=== PATIENT | male | born 1945 | race Caucasian/White ===

== ENCOUNTER → 2017-06-12 | Outpatient (CLI) | payer OTHER, MEDICARE ==
[~2017-06-12] VITALS: Ht 152.4 cm; Wt 91.2 kg
[~2017-06-12] MED LIST: ACETAMINOPHEN-1 EAC1 PO; ADULT LOW DOSE81 MG PO; ALEVE220 MG PO; AUGMENTIN 875-1 EACH PO; BACTRIM 400-801 EACH; CRESTOR10 MG PO; CRESTOR5 MG PO; FISH OIL 1,0001 EAC8 PO; FISHOIL; GLUCOSAMINE S1000 M2 PO; IRON325 PO; LISINOPRIL10 MG; MOBIC15 MG; MOBIC15 MG PO; MULTIVITAMINS PO; OMEPRAZOLE 20 M20 M1 PO; RELAFEN500 MG PO; TIROSINT75 MCG PO; TRAMADOL 50 MG50 MG PO; TYLENOL325 MG PO
[2017-06-12 08:46] VITALS: BP 152/75
== END | disposition home or self-care (01) ==
LOC: PAIN 07:22
DX: M47.896 Other spondylosis, lumbar region (principal); M48.06 Spinal stenosis, lumbar region; K21.9 Gastro-esophageal reflux disease without esophagitis; Z98.890 Other specified postprocedural states; Z79.82 Long term (current) use of aspirin

== ENCOUNTER → 2017-08-21 | Outpatient (CLI) | payer OTHER, MEDICARE | LOC: MRI 07:04 | DX: M75.122 Complete rotator cuff tear or rupture of left shoulder, not specified as traumatic (principal); M19.012 Primary osteoarthritis, left shoulder ==

== ENCOUNTER → 2017-12-18 | Outpatient (CLI) | payer OTHER, MEDICARE ==
[~2017-12-18] VITALS: Ht 177.8 cm; Wt 94.5 kg
[~2017-12-18] MED LIST changes: +DICLOFENAC SODI25 MG PO; +FISH OIL PO; +TYLENOL325 M1 PO; +ZANTAC 150MG T150 MG PO; +ZANTAC 7575 MG PO; +ZOCOR20 MG PO
--- NOTE | ~2017-12-18 | HPC ---
[facility] [place] [address] PAIN MANAGEMENT CONSULTATION Name: TONNY BOLIVAR Room #: REG [facility] Marquez#: [id number] Admission: 12/18/17 Attend Phys: Bal Majano DO Discharge: Date of : 45 Report #: [id number] THIS REPORT FOR: //name// CC: Kasi Majano The patient is a very pleasant 72-year-old gentleman long treated for symptomatic lumbar radiculopathy secondary to spinal stenosis, axial back pain, history of left knee DJD, but does require total knee arthroplasty at some point. He requires a right ankle surgery at some point and will likely require a decompression of the lumbar spine at some point. He did have a left total shoulder arthroplasty on 10/01/2017 and did very well with this. I reviewed his MRI from 09/2016, which notes marked spinal stenosis at L4-L5 down to 5 mm with moderate bilateral neural foraminal narrowing in fact bilateral L4 nerve root. There is grade 1 spondylolisthesis at L5-S1. He returns to the pain clinic today knowing that the bilateral transforaminal epidural injections back in May afforded 68% relief for a number of months, 3-4, with gradual return of symptoms without antecedent trauma or overuse. Notes the pain is more an issue of "heaviness." Describes classic neurogenic claudication with activity. We had a long discussion today about therapeutic options. Ultimately, I think he will require surgical decompression. I talked about trying to time his total knee arthroplasty and his back. Pointed out, he will need to do significant rehab following the knee arthroscopy and we will not do any injections 6 weeks prior to a total knee arthroplasty or 6 weeks afterwards. He still is desirous of getting the knee replaced first and back surgery later. I told him we would support whatever decisions he makes. Today physical exam is compatible with lumbar radiculopathy secondary to spinal stenosis with classic neurogenic claudication. Otherwise, physical exam is relatively unchanged, 72-year-old gentleman, BMI is 29.9 kilograms per meter squared. Subjective pain score is 3 on a VAS. Multiple issues of osteoarthritis affecting shoulder, knees and ankles. VITAL SIGNS: Blood pressure is modestly elevated at 151/91, pulse 60 and respirations 20. Pain intensity 3 on a VAS at present. He has fallen once in the last 3 months, he fell while he was hiking. Notes he was simply not paying attention, his legs did not give out. He did not fall "secondary to pain." He is not hypertensive. He does not take opiates on a regular basis. ASSESSMENT: Symptomatic lumbar radiculopathy secondary to spinal stenosis. [address] [address] PAIN MANAGEMENT CONSULTATION Name: TONNY BOLIVAR Room #: REG [facility] Marquez#: [id number] Admission: 12/18/17 Attend Phys: Bal Majano DO Discharge: Date of : 45 Report #: [id number] RECOMMENDATIONS: Bilateral transforaminal epidural injection under fluoroscopy at L4-L5. PROCEDURE #1: Right L4-L5 transforaminal epidural injection under fluoroscopy. PROCEDURE NOTE: After both written and informed consent to include risk of spinal cord damage, increased pain, weakness and dural puncture, the patient was taken to the fluoroscopy suite, placed in the prone position. After sterile prep and drape, a skin wheal with lidocaine was raised. A 22-gauge epidural Tuohy needle was inserted in the midline at L4-L5 on the right with good loss to resistance. Negative aspiration for cerebrospinal fluid or blood was noted. Then 1 mL of Omnipaque under biplanar fluoroscopy showed good spread within the epidural space. This was followed with 40 mg of triamcinolone plus 1 mL of 1.5% preservative-free Xylocaine, 0.5 mL Xylocaine was then injected to flush the needle; it was removed. The patient was monitored for an appropriate period of time and discharged in good and stable condition. PROCEDURE #2: Left L4-L5 transforaminal epidural injection under fluoroscopy. PROCEDURE NOTE: After both written and informed consent to include risk of spinal cord damage, increased pain, weakness and dural puncture, the patient was taken to the fluoroscopy suite, placed in the prone position. After sterile prep and drape, a skin wheal with lidocaine was raised. A 22-gauge epidural Tuohy needle was inserted in the midline at L4-L5 on the left with good loss to resistance. Negative aspiration for cerebrospinal fluid or blood was noted. Then 1 mL of Omnipaque under biplanar fluoroscopy showed good spread within the epidural space. This was followed with 40 mg of triamcinolone plus 1 mL of 1.5% preservative-free Xylocaine, 0.5 mL Xylocaine was then injected to flush the needle; it was removed. The patient was monitored for an appropriate period of time and discharged in good and stable condition. The patient discharged in good and stable condition. <ELECTRONICALLY SIGNED> By: Bal Majano DO 12/19/17 0725 1628 49 Bal Majano DO /nt
[2017-12-18 14:29] VITALS: BP 151/91
== END | disposition home or self-care (01) ==
LOC: PAIN 07:00
DX: M54.16 Radiculopathy, lumbar region (principal); M48.061 Spinal stenosis, lumbar region without neurogenic claudication; Z98.890 Other specified postprocedural states; M43.16 Spondylolisthesis, lumbar region; M17.0 Bilateral primary osteoarthritis of knee; M19.019 Primary osteoarthritis, unspecified shoulder

== ENCOUNTER → 2018-04-24 | Outpatient (CLI) | payer OTHER, MEDICARE ==
[~2018-04-24] VITALS: Ht 177.8 cm; Wt 91.2 kg
[~2018-04-24] MED LIST changes: -TYLENOL325 M1 PO
--- NOTE | ~2018-04-24 | HPC ---
[facility] [address] [place] [address] PAIN MANAGEMENT CONSULTATION Name: BOLIVARTONNY Room #: REG [facility] Ramone.#: [id number] Admission: 04/24/18 Attend Phys: Bal Majano DO Discharge: Date of : 45 Report #: [id number] THIS REPORT FOR: //name// CC: RONALD Majano HISTORY OF PRESENT ILLNESS: The patient is a very pleasant 72-year-old gentleman with lumbar radiculopathy secondary to spinal stenosis, axial back pain, has some OA affecting the left knee. He has done well with occasional epidural injections, bilateral transforaminal epidural injection at L4-L5 in November afforded very good relief over time. The patient returns to pain clinic today noting pain has begun to recur. We talked about the fact that he has a fairly significant stenosis down to about 5 mm at L4-L5. He is intolerant of NSAID agents due to component of some chronic kidney disease. He will likely benefit from decompressive laminectomy at some point. He is actually planning on moving forward with Neurosurgery in December or January of next year. 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 This involves a lot of getting up and down, which affects his knee, but the axial back and radicular pain is the biggest issue. He complains of pain in the low back, bilateral buttocks and legs. He has some neurogenic claudication symptoms with heaviness, weakness in his legs with prolonged standing and walking. PHYSICAL EXAMINATION: Shows pleasant 72-year-old gentleman, BMI is 28.8 kilograms per meter squared. Vital signs are stable as noted on the EMR. Rises from chair using armrest, modestly antalgic gait. Lumbar flexion is limited. He has a fused right ankle. Straight leg raise is positive bilaterally and lower extremity strength is generally symmetric. ASSESSMENT: Symptomatic lumbar radiculopathy secondary to spinal stenosis. RECOMMENDATION: Repeat bilateral L4-L5 transforaminal epidural injection today, follow up simply as needed. I did inform the patient that I will be leaving the practice. We will have him follow up with Dr. Cabrera Majano for occasional bilateral transforaminal epidural injection at L4-L5 prior to hopefully definitive decompressive laminectomy early next year. PROCEDURE NOTE: Bilateral transforaminal epidural injection at L4-L5. PROCEDURE: 1. Left L4-L5 transforaminal epidural injection under fluoroscopy. [address] [address] PAIN MANAGEMENT CONSULTATION Name: TONNY BOLIVAR [facility] [id number] Admission: 04/24/18 Attend Phys: Bal Majano DO Discharge: Date of : 45 Report #: [id number] PROCEDURE NOTE: After both written and informed consent was obtained including risk of spinal cord damage, infection, increased pain and paralysis, the patient agreed to proceed. The patient was taken to the fluoroscopy suite, placed in a prone position with appropriate abdominal bolstering. After sterile prep with ChloraPrep and sterile drape, a skin wheal with 1% Xylocaine was raised. A 22 gauge 4-1/2 inch epidural Tuohy needle was inserted. From an oblique approach into the posterior-superior aspect of the left L4-L5 neural foramen with continuous pressure on the glass syringe plunger for loss of resistance. Glass syringe was filled with 2 cc of 0.1 Xylocaine. The glass loss of resistance syringe was removed. A low volume extension tubing was connected, negative aspiration was accomplished for cerebrospinal fluid or blood. 1 mL of Omnipaque was injected which showed spread both within the epidural space and laterally along the nerve root. This was followed with 40 mg of triamcinolone plus 1 mL of 1.5% preservative-free Xylocaine. Needle was partially withdrawn, 0.5 mL of Xylocaine was injected to clear the needle and the needle was removed. The area was cleansed, band-aid was applied. The patient was allowed to ambulate to the recovery room, discharged in good and stable condition. 2. Right L4-L5 transforaminal epidural injection under fluoroscopy. PROCEDURE NOTE: After both written and informed consent was obtained including risk of spinal cord damage, infection, increased pain and paralysis, the patient agreed to proceed. The patient was taken to the fluoroscopy suite, placed in a prone position with appropriate abdominal bolstering. After sterile prep with ChloraPrep and sterile drape, a skin wheal with 1% Xylocaine was raised. A 22 gauge 4-1/2 inch epidural Tuohy needle was inserted. From an oblique approach into the posterior-superior aspect of the right L4-L5 neural foramen with continuous pressure on the glass syringe plunger for loss of resistance. Glass syringe was filled with 2 cc of 0.1 Xylocaine. The glass loss of resistance syringe was removed. A low volume extension tubing was connected, negative aspiration was accomplished for cerebrospinal fluid or blood. 1 mL of Omnipaque was injected which showed spread both within the epidural space and laterally along the nerve root. This was followed with 40 mg of triamcinolone plus 1 mL of 1.5% preservative-free Xylocaine. Needle was partially withdrawn, 0.5 mL of Xylocaine was injected to clear the needle and the needle was removed. The area was cleansed, band-aid was applied. The patient was allowed to ambulate to the recovery room, discharged in good and stable condition. Thank you for allowing me to participate in the patient's care. I will keep you abreast of his progress. <ELECTRONICALLY SIGNED> By: Bal Majano DO 04/27/18708 1211 23 Bal Majano DO /nt
[2018-04-24 09:38] VITALS: BP 143/79
== END | disposition home or self-care (01) ==
LOC: PAIN 07:29
DX: M48.062 Spinal stenosis, lumbar region with neurogenic claudication (principal); M54.16 Radiculopathy, lumbar region; G89.29 Other chronic pain; M17.12 Unilateral primary osteoarthritis, left knee; N18.9 Chronic kidney disease, unspecified; Z98.890 Other specified postprocedural states; Z88.8 Allergy status to other drugs, medicaments and biological substances; Z79.82 Long term (current) use of aspirin; Z79.899 Other long term (current) drug therapy

== ENCOUNTER → 2018-05-13 | Outpatient (CLI) | payer OTHER, MEDICARE ==
[~2018-05-13] VITALS: Ht 177.8 cm; Wt 90.4 kg
--- NOTE | ~2018-05-13 | HPC ---
[facility] [place] [address] PAIN MANAGEMENT CONSULTATION Name: OSMELTONNY Room #: REG [facility].#: [id number] Admission: 05/13/18 Attend Phys: Cabrera Majano DO Discharge: Date of : 45 Report #: [id number] THIS REPORT FOR: //name// CC: Cabrera Peralta MD DATE OF SERVICE: 05/13/2018 REFERRING PHYSICIAN: Kasi Peralta MD CHIEF COMPLAINT: Low back pain, bilateral lower extremity pain and paresthesias. HISTORY OF PRESENT ILLNESS: As you know, the patient is a very pleasant 72-year-old male who follows with my partner, Dr. Bal Majano for lumbar radiculopathy. The patient has successfully completed bilateral L4-L5 transforaminal epidural injections with the 75% improvement in overall pain. His most recent injection was 04/24/2018. He returns today in followup visit per the request of Dr. Bal Majano to establish care with my service here at [facility]. The patient states he does very well with injections. At present, he is placing pain score 3/10. He does not wish to undergo an injection at this time. He states he has been able to return to all activities of daily living without significant pain interference. He returns to discuss future treatment options if his pain does intensify or return. ALLERGIES: FENTANYL. CURRENT MEDICATIONS: Diclofenac, ranitidine, simvastatin, ferrous sulfate, multivitamin, aspirin, and levothyroxine. SOCIAL HISTORY: The patient reports he is a nonsmoker. Denies IV or illicit drug use. Denies any chronic alcohol use. 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 He is working, not receiving workmen's compensation. He is unaccompanied today. IMAGING: No new imaging available. PQRS: The patient has osteoarthritis of the left knee and low back. He has no history of rheumatoid arthritis. He is placing pain score today of 3/10. He is not a fall risk, has not had a fall in the last 3 months. He is not on blood thinners. He is not treated for hypertension. He is not on chronic opioids. He is a low risk for opioid addiction. His functional assessment tool rates pain impact at 19/70, mild and interference. PHYSICAL EXAMINATION: VITAL SIGNS: Blood pressure 150/80, pulse 67, respiratory rate 18 and [facility] [address] [place] [address] PAIN MANAGEMENT CONSULTATION Name: TONNY BOLIVAR [facility] [id number] Admission: 05/13/18 Attend Phys: Cabrera Majano DO Discharge: Date of : 45 Report #: [id number] unlabored, the patient is 97% on room air, height 5 feet 10 inches tall, weight pounds, BMI calculated 28.6. GENERAL: Well-developed, well-nourished, well-hydrated 72-year-old male, appears his stated age, he is in no acute distress, awake, alert and oriented x3, current pain score 3/10. HEENT: Normocephalic, atraumatic. Pupils are equal, round, reactive to light. Speech is fluent. EXTREMITIES: Show no clubbing, no cyanosis, and no edema. MUSCULOSKELETAL: Seated straight leg raising is negative. Supine straight leg raising positive bilaterally. The patient does have a mildly antalgic gait favoring today right lower extremity over left. He indicates pain is elicited with rising from a seated position. ASSESSMENT: 1. Symptomatic lumbar radiculopathy. 2. Spinal stenosis of the lumbar spine. 3. Displacement of lumbar intervertebral disk with radiculopathy. 4. Lumbosacral spondylosis with radiculopathy. 5. Degeneration of lumbar spine. 6. Chronic intractable pain. PLAN: 1. The patient returns today in followup visit having reported good efficacy with previous epidural injection, 75% improvement in overall pain. At present, the patient does not wish to undergo next in the series of epidural injections, he wishes to delay the next in the series until which time his pain intensifies to a level that is intolerable. I agree with the patient that this would be an optimal way to treat his symptoms. He has done very well with previous epidural injections. We will be available to see him back in followup visit on an as needed basis for the next in the series. We did discuss today other treatment options including medication management, spinal cord stimulator therapy and surgical options. He will consider these options, but does not wish to make any changes in treatment until which time the injections tend to wane in their capabilities of providing pain improvement. 2. We will see the patient back in followup visit on an as needed basis. We will be available to see him back to undergo bilateral L4-L5 transforaminal injections if warranted. By: 0914 1224 Cabrera Majano DO /nt
[2018-05-13 08:00] VITALS: BP 150/80
== END ==
LOC: PAIN 06:28
DX: M47.27 Other spondylosis with radiculopathy, lumbosacral region (principal); M51.16 Intervertebral disc disorders with radiculopathy, lumbar region; M48.061 Spinal stenosis, lumbar region without neurogenic claudication; G89.4 Chronic pain syndrome

== ENCOUNTER → 2018-07-07 | Outpatient (CLI) | payer OTHER, MEDICARE ==
[~2018-07-07] VITALS: Ht 177.8 cm; Wt 93.4 kg
--- NOTE | ~2018-07-07 | HPC ---
[facility] [address] [place] [address] PAIN MANAGEMENT CONSULTATION Name: OSMELTONNY José Miguel Room #: REG [facility].#: [id number] Admission: 07/07/18 Attend Phys: Cabrera Majano DO Discharge: Date of : 45 Report #: [id number] THIS REPORT FOR: //name// CC: Cabrera Peralta MD DATE OF SERVICE: 07/07/2018 REFERRING PHYSICIAN: Kasi Peralta MD CHIEF COMPLAINT: Low back pain, bilateral lower extremity pain and paresthesias. HISTORY OF PRESENT ILLNESS: As you know, the patient is a 72-year-old male followed by my partner, Dr. Bal Majano for lumbar radicular symptoms. He has undergone injection therapies with good benefit. He returns today requesting to undergo next in the series of epidural injections to address 3/10 pain. He states his pain is chronic in nature. He describes the pain as aching and heavy along with numbness and tingling. He states his pain is exacerbated with working on elliptical, bending, standing, lifting and work and improves with medications, activities and epidural injections. He has returned requesting next in the series of epidural injections to build on success of previous intervention. He denies new injury, new trauma or any changes in medical history since his last visit. ALLERGIES: FENTANYL. CURRENT MEDICATIONS: Diclofenac, ranitidine, simvastatin, ferrous sulfate, multivitamin, aspirin and levothyroxine. SOCIAL HISTORY: The patient denies current tobacco use. He denies IV or illicit drug use. Denies any chronic alcohol use. 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 IMAGING: No new imaging available. PQRS: The patient has osteoarthritis of the left knee and low back. He has no history of rheumatoid arthritis. He is placing current pain score at 3/10. He is not a fall risk, has not had a fall in the last 3 months. He is not on blood thinners, not treated for hypertension. He is not on any medications in regards to opioids. He is a low risk for opioid addiction. Functional assessment pain impact score 27/70, moderate. PHYSICAL EXAMINATION: VITAL SIGNS: Blood pressure 129/73, pulse 59, respiratory rate 16 and [facility] [address] [place] [address] PAIN MANAGEMENT CONSULTATION Name: TONNY BOLIVAR José Miguel Room #: [facility]#: [id number] Admission: 07/07/18 Attend Phys: Cabrera Majano DO Discharge: Date of : 45 Report #: [id number] unlabored, the patient 99% on room air. Height 5 feet 10 inches tall, weight 206 pounds, BMI calculated 29.6. GENERAL: Well-developed, well-nourished, well-hydrated 72-year-old male, appearing his stated age, placing current pain score 3/10. HEENT: Normocephalic and atraumatic. Pupils are equal, round and reactive to light. Extraocular muscles are intact. Sclerae are nonicteric without injection. NEUROLOGIC: Cranial nerves 2 through 12 grossly intact. Speech is fluent. The patient deemed a good historian. EXTREMITIES: Show no clubbing, no cyanosis and no edema. MUSCULOSKELETAL: Seated straight leg raising negative. Supine straight leg raising positive, right greater than left. Hernandez's test negative. Gait is antalgic favoring right lower extremity over left. Muscle bulk and tone is symmetrical in the lower extremities. ASSESSMENT: 1. Lumbar radiculopathy. 2. Spinal stenosis of the lumbar spine. 3. Displacement of the lumbar intervertebral disk with radiculopathy. 4. Lumbosacral spondylosis with radiculopathy. 5. Lumbar degeneration. 6. Chronic intractable pain. PLAN: 1. The patient returns today in followup visit requesting to undergo epidural injection under fluoroscopic guidance to address 3/10 pain. The patient and I discussed at length the risks and benefits of the procedure. These risks include but are not necessarily limited to bleeding, bruising, infection, worsening pain, no relief of pain, also risk of temporary or permanent muscle weakness, temporary or permanent nerve damage, possible paralysis and . The patient states understood and wished to proceed. 2. No medication changes made at today's visit. The patient to continue current medical therapy as previously prescribed. 3. We will see the patient back in followup visit on an as needed basis for the next in the series of epidural injections. PROCEDURE NOTE DESCRIPTION OF PROCEDURE: L5-S1 interlaminar epidural steroid injection under fluoroscopic guidance. After obtaining written consent, the patient was taken back to fluoroscopy suite, placed in prone position with pillow under abdomen to decrease lumbar lordosis. Skin overlying lumbosacral area then prepped and draped in aseptic fashion. L5-S1 vertebral interspace identified by AP fluoroscopy. Skin and subcutaneous tissue overlying target site of injection was anesthetized with [address] [address] PAIN MANAGEMENT CONSULTATION Name: TONNY BOLIVAR Room #: REG [facility]#: [id number] Admission: 07/07/18 Attend Phys: Cabrera Majano DO Discharge: Date of : 45 Report #: [id number] mL of 1% lidocaine. A 20-gauge 3-1/2 inch Tuohy needle advanced under fluoroscopic guidance towards the epidural space using paramedian approach. Epidural space identified using loss of resistance to air technique. After negative aspiration for heme or cerebrospinal fluid, 0.3 mL of Omnipaque injected. Lumbar epidurogram confirmed using both AP and lateral fluoroscopy. After negative aspiration for heme or cerebrospinal fluid, 4 mL of a solution containing 1 mL, 80 mg/mL 80 mg total Depo-Medrol and 1 mL of triamcinolone 40 mg/mL, 40 mg total triamcinolone along with 2 mL of lidocaine 1% was injected slowly. Needle retracted nursing home, flushed with 1 mL of 1% lidocaine and removed. Sterile bandage placed over injection site. No new motor deficits present in the lower extremity following procedure. The patient tolerated the procedure well, carefully escorted to recovery room in stable condition. No apparent complications. After meeting discharge criteria, the patient discharged home. <ELECTRONICALLY SIGNED> By: Cabrera Majano DO 07/08/18 0838 1249 0057 Cabrera Majano DO /nt
[2018-07-07 09:46] VITALS: BP 129/73
== END | disposition home or self-care (01) ==
LOC: PAIN 07:03
DX: M51.16 Intervertebral disc disorders with radiculopathy, lumbar region (principal); M48.061 Spinal stenosis, lumbar region without neurogenic claudication; M47.27 Other spondylosis with radiculopathy, lumbosacral region; G89.29 Other chronic pain; M19.90 Unspecified osteoarthritis, unspecified site; Z88.8 Allergy status to other drugs, medicaments and biological substances; Z79.82 Long term (current) use of aspirin; Z79.899 Other long term (current) drug therapy

== ENCOUNTER → 2018-08-19 | Outpatient (CLI) | payer OTHER, MEDICARE ==
[~2018-08-19] VITALS: Ht 177.8 cm; Wt 92.3 kg
--- NOTE | ~2018-08-19 | HPC ---
[facility] [address] [place] [address] PAIN MANAGEMENT CONSULTATION Name: BOLIVARTONNY Room #: REG [facility].#: [id number] Admission: 08/19/18 Attend Phys: Cabrera Majano DO Discharge: Date of : 45 Report #: [id number] THIS REPORT FOR: //name// CC: Cabrera Peralta MD DATE OF SERVICE: 08/19/2018 CHIEF COMPLAINT: Low back pain, bilateral lower extremity pain with paresthesias. HISTORY OF PRESENT ILLNESS: As you know, the patient is a 72-year-old male who returns today in followup visit with recurrent lumbar radicular symptoms radiating down the legs. He reports pain level of 4/10. He reports, with the previous epidural injections, initial excellent efficacy of 90%. Unfortunately, his symptoms began to return quite rapidly. He continues to experience numbness, tingling and pain radiating down the legs. He returns today to undergo bilateral L4 transforaminal epidural injections to address ongoing pain. If this is ineffective, then he wants to discuss possible surgical options. He denies new injury or new trauma that may have caused recurrence of pain more rapidly. ALLERGIES: FENTANYL. CURRENT MEDICATIONS: Diclofenac, ranitidine, simvastatin, ferrous sulfate, multivitamin, aspirin, levothyroxine. SOCIAL HISTORY: The patient denies tobacco use. Denies IV or illicit drug use. Denies any chronic alcohol use. 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 IMAGING: No new imaging available. PQRS: The patient has osteoarthritis of the left knee and low back. No rheumatoid arthritis. He is placing pain score today 4/10. He is not a fall risk, has not had a fall in the last 3 months. He is not on blood thinners. He is not treated for hypertension. He is not on opioids. He has a low risk for opioid addiction. Functional assessment pain impact score 20/70 [id number] interference of daily activities secondary to pain. PHYSICAL EXAMINATION: VITAL SIGNS: Blood pressure 147/74, pulse is 73, respiratory rate 18 and unlabored. The patient is 98% on room air. Height 5 feet 10 inches tall, weight 203.4 pounds, BMI calculated 29.2. GENERAL: Well-developed, well-nourished, well-hydrated, 72-year-old male. He [address] [address] PAIN MANAGEMENT CONSULTATION Name: TONNY BOLIVAR José Miguel [facility] [id number] Admission: 08/19/18 Attend Phys: Cabrera Majano DO Discharge: Date of : 45 Report #: [id number] appears his stated age, placing current pain score 4/10. HEENT: Normocephalic, atraumatic. Pupils equal, round, reactive to light. Extraocular muscles are intact. Sclerae nonicteric without injection. NEUROLOGIC: Cranial nerves 2 through 12 grossly intact. Speech is fluent. EXTREMITIES: Show no clubbing, no cyanosis, no edema. MUSCULOSKELETAL: Lower extremity strength appears equal and symmetrical 5/5, muscle bulk and tone equal and symmetrical in lower extremities. Seated straight leg raising negative. Supine straight leg raising is positive, greater on the right than the left, but is present bilaterally. Hernandez's test negative. Gait antalgic favoring right lower extremity over left. Ankle clonus negative. Babinski is negative. ASSESSMENT: 1. Lumbar radiculopathy. 2. Spinal stenosis of lumbar spine. 3. Displacement of lumbar intervertebral disk with radiculopathy. 4. Lumbosacral spondylosis with radiculopathy. 5. Lumbar degeneration. 6. Chronic intractable pain. PLAN: 1. The patient returns today in followup visit having noted excellent benefit with previous epidural injection. Unfortunately, his symptoms have returned. He returns today requesting to undergo bilateral transforaminal epidural injections as provided by Dr. Bal Majano as he felt these were more effective. He has returned to undergo the procedure today. I advised him of the risks and benefits, states he understood and wished to proceed. 2. No medication changes made at today's visit. The patient to continue current medical therapy as previously prescribed. 3. We will see the patient back in followup visit on an as needed basis for possible next in the series of epidural injections. I did advise the patient today if his pain does not improve significantly with this injection and we see prolonged improvement, I would recommend further imaging with MRI lumbar spine without contrast. This would prepare the patient if he wishes to move forward with surgical options to be ready to have that consultation. The patient will contact our clinic if his symptoms do not improve and remain well covered for at least 2 months. <ELECTRONICALLY SIGNED> By: Cabrera Majano DO 08/25/18 1259 [id number] Cabrera Majano DO /nt
--- NOTE | ~2018-08-19 | HPC ---
[address] [address] PAIN MANAGEMENT CONSULTATION Name: TONNY BOLIVAR [id number] Admission: 08/19/18 Attend Phys: Cabrera Majano DO Discharge: Date of : 45 Report #: [id number] THIS REPORT FOR: //name// CC: Cabrera Peralta MD DATE OF SERVICE: 08/19/2018 DESCRIPTION OF PROCEDURE: Bilateral transforaminal epidural injections under fluoroscopic guidance. After obtaining written consent, the patient was taken back to fluoroscopy suite, placed in prone position with pillow under abdomen to decrease lumbar lordosis. Skin overlying the lumbosacral area then prepped and draped in aseptic fashion. The lumbar vertebrae were identified fluoroscopically. The neural foramen at 6 o'clock position of the pedicle was then identified using oblique fluoroscopy. Skin and subcutaneous tissue overlying target site of injection was anesthetized with 3 mL of 1% lidocaine. Using a tunneled view, a 22-gauge 3-1/2-inch Tuohy needle with bent tip was advanced towards the right epidural space under fluoroscopic guidance. Final position of the needle was identified using AP and lateral views. There were no paresthesias during final needle placement on the right. After negative aspiration for heme or cerebrospinal fluid, 0.4 mL of Omnipaque injected. This was done under live fluoroscopy, which demonstrated absence of vascular uptake. AP and lateral imaging demonstrated excellent neurogram and epidurogram. Pain provocation with injected contrast material was negative. After negative aspiration for heme or cerebrospinal fluid, 3 mL of a solution containing 1 mL 40 mg per mL, 40 mg total triamcinolone, 2 mL of lidocaine 1% injected slowly. Needle retracted detention, flushed with 1 mL of 1% lidocaine and removed. Our attention was then directed to the left side. The image intensifier was then placed in position with a tunneled view directly to the target site of the injection. The area was then anesthetized with 3 mL of 1% lidocaine. A 22-gauge 3-1/2-inch Tuohy needle with bent tip was advanced towards the epidural space under fluoroscopic guidance. Final position of the needle was then identified using AP and lateral imaging. There was no pain or paresthesia during needle placement. After negative aspiration for heme or cerebrospinal fluid, a total of 0.4 mL of Omnipaque was injected demonstrating absence of vascular uptake under live fluoroscopy. AP and lateral imaging demonstrated excellent epidurogram on the left. Pain provocation was negative with contrast material injection. After negative aspiration for heme, 3 mL of a solution containing 1 mL 40 mg per mL, 40 mg total triamcinolone, 2 mL lidocaine 1% injected slowly. Needle retracted detention, flushed with 1 mL of 1% lidocaine and removed. Sterile bandage placed over injection site. No new motor deficits present in the lower extremity following procedure. [address] [address] PAIN MANAGEMENT CONSULTATION Name: TONNY BOLIVAR Room #: REG [facility]#: [id number] Admission: 08/19/18 Attend Phys: Cabrera Majano DO Discharge: Date of : 45 Report #: [id number] The patient tolerated procedure well, carefully escorted to the recovery room in stable condition. No apparent complications. After meeting discharge criteria, the patient discharged home. <ELECTRONICALLY SIGNED> By: Cabrera Majano DO 08/25/18 1259 [id number] Cabrera Majano DO /nt
[2018-08-19 08:07] VITALS: BP 147/74
== END | disposition home or self-care (01) ==
LOC: PAIN 06:34
DX: M51.16 Intervertebral disc disorders with radiculopathy, lumbar region (principal); M47.27 Other spondylosis with radiculopathy, lumbosacral region; M46.96 Unspecified inflammatory spondylopathy, lumbar region; M48.061 Spinal stenosis, lumbar region without neurogenic claudication; G89.29 Other chronic pain; M17.12 Unilateral primary osteoarthritis, left knee; Z79.82 Long term (current) use of aspirin; Z88.8 Allergy status to other drugs, medicaments and biological substances; Z79.899 Other long term (current) drug therapy; Z98.890 Other specified postprocedural states

== ENCOUNTER → 2018-09-30 | Outpatient (CLI) | payer OTHER, MEDICARE ==
[~2018-09-30] VITALS: Ht 177.8 cm; Wt 93.6 kg
[~2018-09-30] MED LIST changes: +TYLENOL325 M1 PO
--- NOTE | ~2018-09-30 | HPC ---
[facility] [address] [place] [address] PAIN MANAGEMENT CONSULTATION Name: TONNY BOLIVAR Room #: REG [facility].#: [id number] Admission: 09/30/18 Attend Phys: Cabrera Majano DO Discharge: Date of : 45 Report #: [id number] THIS REPORT FOR: //name// CC: Cabrera Peralta MD DATE OF SERVICE: 09/30/2018 CHIEF COMPLAINT: Low back pain, bilateral lower extremity pain and paresthesias. HISTORY OF PRESENT ILLNESS: As you know, the patient is a 73-year-old male who returns today in followup visit with recurrent low back pain, bilateral lower extremity pain with paresthesias. The patient, as you are aware, suffers from lumbar radiculopathy secondary to progressively worsening spinal stenosis. The patient's spinal stenosis is multifactorial secondary to the displacement of intervertebral disk and facet arthropathy leading to central canal stenosis. He returns today in followup visit indicating the last bilateral transforaminal epidural injections provided gave approximately 50-60% improvement in overall pain. He returns today in followup visit requesting to undergo the next in the series. 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 He returns requesting bilateral transforaminal epidural injections. ALLERGIES: FENTANYL. CURRENT MEDICATIONS: Diclofenac, ranitidine, simvastatin, ferrous sulfate, multivitamins, aspirin, and levothyroxine. SOCIAL HISTORY: The patient continues current tobacco use. He denies IV or illicit drug use. Denies any chronic alcohol use. 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 IMAGING: No new imaging available. PQRS: The patient has osteoarthritis of the low back and left knee. No history of rheumatoid arthritis. He is placing his current pain intensity at 6/10. He is not a fall risk. Has not had a fall in the last 3 months. He is not on blood thinners. He is not treated for hypertension. He is not on any opioids. He has a low risk for opioid addiction. Functional assessment pain impact tool 27/70, mild to moderate interference of daily activities secondary to pain. PHYSICAL EXAMINATION: VITAL SIGNS: Blood pressure 132/74, pulse 62, respiratory rate 16 and unlabored. The patient is 97% on room air. Height 5 feet 10 inches tall, [facility] [address] [place] [address] PAIN MANAGEMENT CONSULTATION Name: OSMELTONNY José Miguel [facility] [id number] Admission: 09/30/18 Attend Phys: Cabrera Majano DO Discharge: Date of : 45 Report #: [id number] weight 206 pounds, BMI calculated 29.6. GENERAL: Well-developed, well-nourished, well-hydrated 73-year-old male appearing stated age, placing current pain score 6/10. HEENT: Normocephalic, atraumatic. Pupils are equal, round, reactive to light. EXTREMITIES: Show no clubbing, no cyanosis, no edema. MUSCULOSKELETAL: The patient has an antalgic gait favoring right lower extremity over left. Muscle bulk and tone appears symmetrical in lower extremities, though there is subjective weakness noted with muscle strength. It does appear to be 5/5. ASSESSMENT: 1. Lumbar radiculopathy. 2. Spinal stenosis of lumbar spine. 3. Displacement of lumbar intervertebral disk with radiculopathy. 4. Lumbosacral spondylosis with radiculopathy. 5. Lumbar degeneration. 6. Chronic intractable pain. PLAN: 1. The patient returns today in followup visit to undergo bilateral transforaminal epidural injections under fluoroscopic guidance. The patient did very well with previous series reporting up to 50-60% improvement in overall pain lasting until just recently where he had an acute exacerbation of symptoms after participating in climbing ladders for a couple of days while painting a home. He returns today requesting to undergo the procedure today. Advised the risks and benefits, states understood and wished to proceed. 2. The patient and I had a very long discussion today about future treatment options if the epidural injections begin to fail. We did discuss the possibility of medication management changes with addition of neuropathic pain medication. We also discussed spinal cord stimulator therapy and surgical options. He will consider these if the epidural injections began to wane in their activities. 3. We did discuss at length today smoking cessation. I did advise the smoking does exacerbate chronic pain issues and he should look to decreasing this activity. He will consider this option. 4. We will see the patient back in followup visit on an as needed basis. PROCEDURE NOTE DESCRIPTION OF PROCEDURE: Bilateral transforaminal epidural injections under fluoroscopic guidance. After obtaining written consent, the patient was taken back to fluoroscopy suite, placed in prone position with pillow under abdomen to decrease lumbar lordosis. Skin overlying lumbosacral area then prepped and draped in aseptic fashion. The lumbar vertebrae were identified fluoroscopically. The [address] [address] PAIN MANAGEMENT CONSULTATION Name: TONNY BOLIVAR Room #: REG [facility]#: [id number] Admission: 09/30/18 Attend Phys: Cabrera Majano DO Discharge: Date of : 45 Report #: [id number] foramen at the 6 o'clock position of the pedicle was then identified using oblique fluoroscopy. Skin and subcutaneous tissue overlying target site of injection was anesthetized with 3 mL of 1% lidocaine. Using a tunneled view, a 22 gauge 3-1/2 inch Tuohy needle with bent tip was advanced towards the right epidural space under fluoroscopic guidance. Final position of the needle was identified using AP and lateral views. There was no pain or paresthesias during needle placement on the right. After negative aspiration for heme or cerebrospinal fluid, 0.3 mL of Omnipaque injected. This was done under live fluoroscopy, which demonstrated absence of vascular uptake. AP and lateral imaging demonstrated excellent neurogram and epidurogram. Pain provocation with injected contrast material was negative. After negative aspiration for heme or cerebrospinal fluid, 3 mL of a solution containing 1 mL 40 mg per mL, 40 mg total triamcinolone, 2 mL of lidocaine 1% injected slowly. Needle retracted half-way, flushed with 1 mL of 1% lidocaine and removed. Our attention was then directed to the left side. Image intensifier was then placed in position over the lumbar region. The lumbar neural foramen was identified at 6 o'clock position of the pedicle on the left side. Skin and subcutaneous tissue overlying target site of injection was anesthetized with 3 mL of 1% lidocaine. Using a tunneled view, a 22 gauge 3-1/2 inch Tuohy needle advanced under fluoroscopic guidance towards the left epidural space under fluoroscopic imaging. Final position of the needle was identified using AP and lateral views. There was no pain or paresthesia during needle placement on the left. After negative aspiration for heme, 0.4 mL of Omnipaque injected. This was done under live fluoroscopy, which demonstrated absence of vascular uptake. AP and lateral imaging demonstrated excellent neurogram and epidurogram. Pain provocation with injected contrast material was negative. After negative aspiration for heme or cerebrospinal fluid, 3 mL of a solution containing 1 mL 40 mg per mL, 40 mg total triamcinolone and 2 mL of lidocaine 1% injected slowly. Needle retracted half-way, flushed with 1 mL of 1% lidocaine and removed. Sterile bandage placed over both injection sites. The patient tolerated procedure well, carefully escorted to the recovery room in stable condition. No apparent complication. After meeting discharge criteria, the patient discharged home. By: [id number] Cabrera Majano DO /balwinder
[2018-09-30 08:26] VITALS: BP 132/74
== END | disposition home or self-care (01) ==
LOC: PAIN 06:57
DX: M51.16 Intervertebral disc disorders with radiculopathy, lumbar region (principal); M48.061 Spinal stenosis, lumbar region without neurogenic claudication; M47.27 Other spondylosis with radiculopathy, lumbosacral region; G89.29 Other chronic pain; M12.88 Other specific arthropathies, not elsewhere classified, other specified site; Z98.890 Other specified postprocedural states; Z88.8 Allergy status to other drugs, medicaments and biological substances; Z79.899 Other long term (current) drug therapy; Z79.82 Long term (current) use of aspirin; I10 Essential (primary) hypertension

== ENCOUNTER → 2018-11-25 | Outpatient (CLI) | payer OTHER, MEDICARE ==
[~2018-11-25] VITALS: Ht 177.8 cm; Wt 92.5 kg
[~2018-11-25] MED LIST changes: +NEURONTIN 300300 M1 PO
--- NOTE | ~2018-11-25 | HPC ---
[address] [address] PAIN MANAGEMENT CONSULTATION Name: BOLIVARTONNY [facility] [id number] Admission: 11/25/18 Attend Phys: Cabrera Majano DO Discharge: Date of : 45 Report #: [id number] THIS REPORT FOR: //name// CC: Cabrera Peralta DATE OF SERVICE: 11/25/2018 CHIEF COMPLAINT: Low back pain, bilateral lower extremity pain and paresthesias. HISTORY OF PRESENT ILLNESS: As you know, the patient is a 73-year-old male who returns today in followup visit with continued low back pain, bilateral lower extremity pain and paresthesias. As you are aware, the patient has been treated for lumbar radiculopathy secondary to progressively worsening spinal stenosis of lumbar spine. His spinal stenosis is multifactorial secondary to displaced lumbar intervertebral disk, facet arthropathy pain, combining to cause spinal stenosis. He has undergone epidural injections with good efficacy, but unfortunately the length of time we are receiving with these injections has begun to reduce from an efficacious standpoint. He returns today in followup visit to discuss other treatment options as he is early to undergo next in the series of epidural injections, which cannot be provided until 01/07/2018 based on his current shot record. He denies injury or trauma or any changes in medical history since our last visit. ALLERGIES: FENTANYL. CURRENT MEDICATIONS: Diclofenac, ranitidine, simvastatin, ferrous sulfate, multivitamin, aspirin, levothyroxine. SOCIAL HISTORY: The patient continues to abuse tobacco. He denies IV or illicit drug use. Denies any chronic alcohol use. 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 IMAGING: No new imaging available. PQRS: The patient has known arthritic changes, low back, left knee. No history of rheumatoid arthritis. Placing pain intensity today, 6/10, not a fall risk, but has had a fall in the last 3 months. This was after tripping. He is not on blood thinners and not treated for hypertension. He is not on chronic opioids. He has a low to moderate risk for opioid addiction. He is placing pain impact score functional assessment at 27/70, moderate interference of daily activities secondary to pain. PHYSICAL EXAMINATION: [facility] [address] [place] [address] PAIN MANAGEMENT CONSULTATION Name: TONNY BOLIVAR José Miguel Room #: [facility]#: [id number] Admission: 11/25/18 Attend Phys: Cabrera Majano DO Discharge: Date of : 45 Report #: [id number] VITAL SIGNS: Blood pressure 136/75, pulse 70, respiratory rate 20 and unlabored. The patient is 100% on room air. Height 5 feet 10 inches tall, weight 204 pounds, BMI calculated 29.3. GENERAL: Well-developed, well-nourished, well-hydrated 73-year-old male, appearing stated age, placing current pain score at 6/10. HEENT: Normocephalic, atraumatic. Pupils equal, round, reactive to light. EXTREMITIES: Show no clubbing, no cyanosis, no edema. MUSCULOSKELETAL: The patient remains with an antalgic gait favoring mainly the right lower extremity over left. Muscle bulk and tone appear symmetrical in lower extremities, though there is noted subjective weakness with hip flexion, knee extension bilaterally. Grading of the musculature is 5/5. He is intact to light touch from L1 through S2 dermatomes. Seated straight leg raising negative. Supine straight leg raising mildly positive on the right. ASSESSMENT: 1. Lumbar radiculopathy. 2. Progressively worsening spinal stenosis of lumbar spine. 3. Displacement of lumbar intervertebral disk with radiculopathy. 4. Lumbosacral spondylosis with radiculopathy. 5. Lumbar degeneration. 6. Chronic intractable pain. PLAN: 1. The patient returns today in followup visit where we have discussed at length the efficacy of epidural injections. He is noticing good benefit, but unfortunately the benefit he was receiving has become lessened. I am concerned he is having progressively worsening symptoms secondary to progressively worsening spinal stenosis. We discussed this at length today. After a very long discussion about our concerns of progressing of his spinal stenosis, we discussed various treatment options that remain available. The following was discussed with the patient today. We discussed physical therapy, stretching exercise, core strengthening, which could improve the patient's overall symptoms. We discussed adjustments in his medication, adding a neuropathic pain medication to address radicular symptoms. We also discussed possibly repeating epidural injections beginning 01/07/2018, the next available injection date. We discussed surgical options. After reviewing risks and benefits of all proposed treatment options, the patient chose at present to make adjustments in medication therapy. 2. The patient will be started on gabapentin 300 mg dose. He will begin 1 tab p.o. bedtime for 3 nights and 2 tabs p.o. at bedtime for 3 nights, then 1 tab in the morning, 2 tabs at night for 3 nights, then 2 tabs in the morning, 2 tabs at night for 3 nights, then 2 tabs in the morning, 1 tab at noon, 2 tabs at night for 3 nights, ultimately reaching 2 tabs 3 times a day. The patient was given a prescription of gabapentin to escalate dosing of medication. He was given [address] [place] [address] PAIN MANAGEMENT CONSULTATION Name: OSMELTONNY Room #: REG [facility].#: [id number] Admission: 11/25/18 Attend Phys: Cabrera Majano DO Discharge: Date of : 45 Report #: [id number] enough to make the 2 tabs 3 times a day, total of 180 tablets. We did provide 2 refills of this medication. He is to watch for any side effects of somnolence, decreased mental acuity, disorientation, confusion. If he notes any side effects, decrease the dose prior and contact our clinic, if no side effects, continue the titration as directed. We will adjust medications based on efficacy. 3. We will see the patient back in followup visit once he has titrated his gabapentin to an efficacious level or if he is having side effects. Otherwise, we will see him back for possible epidural injection on 01/07/2018. By: [id number] Cabrera Majano DO /nt
[2018-11-25 08:34] VITALS: BP 136/75
--- NOTE | 2018-11-25 08:49 | NUR ---
Pain Clinic Assessment: 1. History of Osteoarthritis: Not Applicable History of Rheumatoid Arthritis: Not Applicable 2. Height: 5 ft. 10 in. 177.8 cm. Weight: 204.0 lb. oz. 92.534 kg. Patient's BMI: 29.3 3. Vital Signs: BP: 136/75 Pulse: 70 Resp: 20 Temp: 02 Sat: 100 ECG Mon: 4. Pain Intensity: 6 5. Fall Risk: Dizziness: N Needs help standing or walking: N Fallen in the last 3 months: Y Fall risk comments: 6. Patient on Blood Thinner: None 7. History of Hypertension: N 8. Opioid Therapy greater than 6 weeks: N Opiate Contract Signed: 9. Risk Assessment Tool Provided: LOW RISK 0 10. Functional Assessment Tool: 11. Recreational Drug Use: Never Drug Type: Tobacco Use: Never Smoker Tobacco Type: Amount or Packs/day: How Many Years: Alcohol Use: No Frequency: Quant:
== END ==
LOC: PAIN 08:17
DX: M54.5 Low back pain (principal); M79.604 Pain in right leg; M79.605 Pain in left leg; G89.29 Other chronic pain; R53.1 Weakness; Z79.899 Other long term (current) drug therapy

== ENCOUNTER → 2019-01-19 | Outpatient (CLI) | payer OTHER, MEDICARE ==
[~2019-01-19] VITALS: Ht 177.8 cm; Wt 93.4 kg
[2019-01-19 10:09] VITALS: BP 131/78
--- NOTE | 2019-01-19 10:22 | NUR ---
Pain Clinic Assessment: 1. History of Osteoarthritis: Not Applicable History of Rheumatoid Arthritis: Not Applicable 2. Height: 5 ft. 10 in. 177.8 cm. Weight: 206.0 lb. oz. 93.441 kg. Patient's BMI: 29.6 3. Vital Signs: BP: 131/78 Pulse: 67 Resp: 16 Temp: 02 Sat: 100 ECG Mon: 4. Pain Intensity: 7-8 5. Fall Risk: Dizziness: N Needs help standing or walking: N Fallen in the last 3 months: Y Fall risk comments: 6. Patient on Blood Thinner: None 7. History of Hypertension: N 8. Opioid Therapy greater than 6 weeks: N Opiate Contract Signed: 9. Risk Assessment Tool Provided: LOW RISK 0 10. Functional Assessment Tool: 11. Recreational Drug Use: Never Drug Type: Tobacco Use: Never Smoker Tobacco Type: Amount or Packs/day: How Many Years: Alcohol Use: No Frequency: Quant:
--- NOTE | 2019-01-20 08:10 | HPC ---
[facility] [place] [address] PAIN MANAGEMENT CONSULTATION Name: OSMELTONNY Room #: REG [facility] Ramone.#: [id number] Admission: 01/19/19 ������������������ Attend Phys: Cabrera Majano DO Discharge: ������������������ Date of : 45 Report #: [id number] THIS REPORT FOR: //name// CC: Cabrera Peralta MD DATE OF SERVICE: 01/19/2019 REFERRING PHYSICIAN: Kasi Peralta M.D. CHIEF COMPLAINT: Low back pain, bilateral lower extremity pain and paresthesias. HISTORY OF PRESENT ILLNESS: As you know, the patient is a very pleasant 73-year-old male who returns today in followup visit reporting pain score 7-8/10. He indicates no new injury or trauma that has led to recurrence of his low back pain, bilateral lower extremity pain with paresthesias. At last visit, we trialed the patient on gabapentin starting with 1 tab p.o. at bedtime, escalating over a 15-day period to reach 600 mg 3 times a day. The patient states he began to experience side effects he could not tolerate such as somnolence, decreased mental acuity, disorientation and confusion. He subsequently discontinued the medication and the symptoms faded. Unfortunately, his symptoms returned to a level that he is now seeking possible epidural injection. He has suffered no injury, no trauma or changes in medication therapy except for what has been indicated in the HPI. He returns today in followup visit requesting epidural injection under fluoroscopic guidance to address lumbar radicular symptoms. ALLERGIES: FENTANYL. CURRENT MEDICATIONS: Diclofenac, ranitidine, simvastatin, ferrous sulfate, multivitamin, aspirin, levothyroxine. SOCIAL HISTORY: The patient continues to abuse tobacco. He denies IV or illicit drug use. Denies any chronic alcohol use. 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 IMAGING: No new imaging available. PQRS: The patient has known arthritic changes of the lumbar spine, left knee. No history of rheumatoid arthritis. He is placing pain intensity is 7-8/10. He is not a fall risk, typically, but did have a fall in the last 3 months. He states he tripped over an object. He does not use any type of ambulatory device. He is not on blood thinners. He is not treated for hypertension. He is not on opioids. He has a low risk for opioid addiction. He is placing pain [facility] [address] [place] [address] PAIN MANAGEMENT CONSULTATION Name: TONNY BOLIVAR Room #: REG [facility]#: [id number] Admission: 01/19/19 ������������������ Attend Phys: Cabrera Majano DO Discharge: ������������������ Date of : 45 Report #: [id number] impact score 27/70 indicating moderate interference of daily activities secondary to pain. PHYSICAL EXAMINATION: VITAL SIGNS: Blood pressure 131/78, pulse is 67, respiratory rate 16 and unlabored. The patient is 100% on room air. Height 5 feet 10 inches tall, weight 206 pounds, BMI calculated 29.6. GENERAL: Well-developed, well-nourished, well-hydrated, 73-year-old male, appearing stated age, placing current pain score around 7-8/10. HEENT: Normocephalic, atraumatic. Pupils equal, round, reactive to light. EXTREMITIES: Show no clubbing, no cyanosis, no edema. MUSCULOSKELETAL: Lower extremity strength equal and symmetrical 5/5. He has an antalgic gait favoring right lower extremity over left. Muscle bulk and tone is symmetrical in comparing the lower extremities, creating a muscle strength 5/5. He is intact to light touch from L1 through S2 dermatomes. Seated straight leg raising negative. Supine straight leg raising mildly positive for right. ASSESSMENT: 1. Lumbar radiculopathy. 2. Progressively worsening spinal stenosis of lumbar spine. 3. Displacement of lumbar intervertebral disk with radiculopathy. 4. Lumbosacral spondylosis with radiculopathy. 5. Lumbar degeneration. 6. Chronic intractable pain. PLAN: 1. The patient returns today in followup visit requesting to undergo next in the series of epidural injections under fluoroscopic guidance. He has done well with epidural injections in the past and is hopeful to see similar improvement today. Unfortunately, the patient did have some symptoms with the gabapentin causing somnolence, decrease in mental acuity, disorientation and confusion. He has subsequently discontinued the medication. His symptoms did improve. We recommend he remain off this medication at this time. We will trial epidural injection and determine if his symptoms improve. If he does not see significant improvement with this epidural injection, I would recommend further MRI imaging. His last imaging was 2015. We wish to further evaluate if conservative treatment options are not effective. The patient was amenable with this treatment plan. 2. No medication changes made at today's visit. The patient to continue current medical therapy as previously prescribed. 3. We will see the patient back in followup visit on an as needed basis for the next in the series of epidural injections. PROCEDURE NOTE DESCRIPTION OF PROCEDURE: L4-L5 interlaminar epidural steroid injection under [facility] [address] [place] [address] PAIN MANAGEMENT CONSULTATION Name: TONNY BOLIVAR Room #: REG CLMari Marquez#: [id number] Admission: 01/19/19 ������������������ Attend Phys: Cabrera Majano DO Discharge: ������������������ Date of : 45 Report #: [id number] fluoroscopic guidance. After obtaining written consent, the patient was taken back to fluoroscopy suite, placed in prone position with pillow under abdomen to decrease lumbar lordosis. Skin overlying lumbosacral area then prepped and draped in aseptic fashion. The L4-L5 vertebral interspace identified by AP fluoroscopy. Skin and subcutaneous tissue overlying target site of injection anesthetized with 2 mL of 1% lidocaine. A 20-gauge 3-1/2 inch Tuohy needle advanced under fluoroscopic guidance towards the epidural space using a paramedian approach. Epidural space identified using loss of resistance to air technique. After negative aspiration for heme or cerebrospinal fluid, 1 mL of Omnipaque injected. Lumbar epidurogram confirmed using both AP and lateral fluoroscopy. After negative aspiration for heme or cerebrospinal fluid, 5 mL of a solution containing 1 mL 40 mg per mL, 40 mg total triamcinolone, 1 mL of Depo-Medrol 80 mg per mL and 3 mL lidocaine 1% injected slowly. Needle was retracted approximately half way, flushed with 1 mL of 1% lidocaine and then removed. Sterile bandage placed over injection site. No new motor deficits present in the lower extremities following procedure. The patient tolerated procedure well, carefully escorted to recovery room in stable condition. No apparent complications. After meeting discharge criteria, the patient discharged home. ��������������������������������������������� <ELECTRONICALLY SIGNED> ���������������������������������������� By: Cabrera Majano DO ��������������������������������������������� 01/20/19 0810 1255 0107 Cabrera Majano DO /balwinder
== END | disposition home or self-care (01) ==
LOC: PAIN 06:51
DX: M51.16 Intervertebral disc disorders with radiculopathy, lumbar region (principal); M48.061 Spinal stenosis, lumbar region without neurogenic claudication; M47.27 Other spondylosis with radiculopathy, lumbosacral region; G89.29 Other chronic pain; M19.90 Unspecified osteoarthritis, unspecified site; Z88.8 Allergy status to other drugs, medicaments and biological substances; Z79.899 Other long term (current) drug therapy; Z79.82 Long term (current) use of aspirin; Z98.890 Other specified postprocedural states

== ENCOUNTER → 2019-07-05 | Outpatient (CLI) | payer OTHER, MEDICARE | LOC: MRI 13:37 | DX: S71.012A Laceration without foreign body, left hip, initial encounter (principal); M25.452 Effusion, left hip; M47.816 Spondylosis without myelopathy or radiculopathy, lumbar region; M43.26 Fusion of spine, lumbar region; X58.XXXA Exposure to other specified factors, initial encounter; Y93.9 Activity, unspecified; Y92.89 Other specified places as the place of occurrence of the external cause; Y99.8 Other external cause status ==

== ENCOUNTER 2019-07-19 05:32 | Day surgery (SDC) | payer OTHER, MEDICARE ==
[~2019-07-19] VITALS: Ht 177.8 cm; Wt 88.5 kg
[~2019-07-19 05:32] MED LIST changes: +VITAMIN B-1100 M1 PO
[2019-07-19 06:27] LABS: CALCIUM 8.9 mg/dL (8.5-10.1); CREATININE 1.5 mg/dL (0.7-1.3); POTASSIUM 3.9 mmol/L (3.5-5.1)
[2019-07-19 06:33] LABS: ALBUMIN 3.7 g/dL (3.4-5.0); TOTAL BILIRUBIN 0.5 mg/dL (<0.1-1.0); TOTAL PROTEIN 6.8 g/dL (6.4-8.2)
[2019-07-19 06:43] VITALS: BP 148/63
== END 2019-07-19 09:00 | disposition home or self-care (01) ==
LOC: OR 05:32 → TBA 05:48 → OR 09:00
PROVIDERS: Orthopaedic Surgery Hand Surgery
DX: G56.01 Carpal tunnel syndrome, right upper limb (principal); Z53.8 Procedure and treatment not carried out for other reasons; E78.5 Hyperlipidemia, unspecified; G47.30 Sleep apnea, unspecified; Z85.46 Personal history of malignant neoplasm of prostate; Z85.828 Personal history of other malignant neoplasm of skin; E03.9 Hypothyroidism, unspecified; Z98.890 Other specified postprocedural states; Z98.41 Cataract extraction status, right eye; Z98.42 Cataract extraction status, left eye; Z79.899 Other long term (current) drug therapy
CPT/HCPCS: 50010

== ENCOUNTER 2019-07-21 10:57 | Day surgery (SDC) | payer OTHER, MEDICARE ==
[~2019-07-21] VITALS: Ht 177.8 cm; Wt 88.5 kg
[2019-07-21 11:44] VITALS: BP 115/96
[2019-07-21 16:46] VITALS: BP 115/96
--- NOTE | 2019-08-10 15:27 | O ---
[facility] [place] [address] OPERATIVE REPORT Name: TONNY BOLIVAR Room #: DEP [facility]#: [id number] Admission: 07/21/19 ������������������ Attend Phys: Kamryn Faulkner, Discharge: 07/21/19 ������������������ Date of : 45 Report #: [id number] THIS REPORT FOR: //name// CC: Kasi Faulkner DATE OF SERVICE: 07/21/2019 PREOPERATIVE DIAGNOSES: 1. Right carpal tunnel syndrome. 2. Right thumb carpometacarpal arthritis. 3. Right distal radioulnar joint arthritis. POSTOPERATIVE DIAGNOSES: 1. Right carpal tunnel syndrome. 2. Right thumb carpometacarpal arthritis. 3. Right distal radioulnar joint arthritis. PROCEDURES PERFORMED: 1. Right open carpal tunnels. 2. Right thumb carpometacarpal arthroplasty, ligament reconstruction and tendon interposition procedure. 3. Right distal ulna russel-resection with interposition arthroplasty. SURGEON: Kamryn Faulkner MD ANESTHESIA: General mask anesthesia. ESTIMATED BLOOD LOSS: 10 mL. TOURNIQUET TIME: 118 minutes. COMPLICATIONS: None. CONDITION: Stable. DISPOSITION: Recovery room. IMPLANTS USED: Achilles tendon allograft was used due to the unavailability of a frozen tensor fascia ellie allograft. INDICATIONS: The patient is a 73-year-old male with above-mentioned diagnosis. He elects for operative treatment. We again examined him today. He did not have any significant pain at the radiocarpal joint, had significant pain, tenderness at the DRUJ, thumb CMC joint and symptoms consistent with carpal tunnel syndrome. We discussed the diagnosis as well as treatment options. He [address] [address] OPERATIVE REPORT Name: TONNY BOLIVAR José Miguel Room #: DEP [facility]..#: [id number] Admission: 07/21/19 ������������������ Attend Phys: Kamryn Faulkner, Discharge: 07/21/19 ������������������ Date of : 45 Report #: [id number] elects for the above-mentioned procedures. The correct extremities and surgical sites were identified and labeled by myself after verbal confirmation of the patient as well as visual confirmation and signed informed consent. DESCRIPTION OF PROCEDURE: The patient was brought to the operating room and placed on the operating table in supine position. He received preoperative antibiotics. Tourniquet was placed over padding on the patient's right upper extremity. Right upper extremity was sterilely prepped and draped in the usual fashion. Final timeout was taken to verify correct patient, operative procedure, operative site, all concurred. The arm was elevated, exsanguinated and tourniquet inflated. Next, the carpal tunnel procedure was done with aid of 3.5 loupe magnification. Approximately, a 3 cm incision was made over the carpal tunnel in line with the ring and long finger web space. Dissection was carried down through subcutaneous tissue with tenotomy scissors. In the mid portion of incision, a #15 blade was used to incise the very thick transverse carpal ligament. The very thick transverse carpal ligament was transected proximally from the antebrachial fascia in the palm all the way through the fat in the palm. The incision was ulnar to the course of median nerve to decrease postoperative scarring. The nerve looked to be in good condition. There was some hyperemia at the point of maximal compression. The wound was thoroughly irrigated. Skin was closed with 4-0 nylon suture. Next, a Fermin approach was done of the CMC joint. Dissection was carried down through subcutaneous tissue with tenotomy scissors. There was a sensory nerve that was identified and carefully protected. The thenars were elevated off the capsule. The capsule was incised and the trapezium was excised using a combination of a rongeur and osteotome. The scaphotrapezoid joint was evaluated and looked to be in good condition. Some loose bodies were identified and removed with a curette. Next, in the proximal portion of the Fermin incision, a mosquito hemostat was placed beneath the FCR tendon. Two incisions were made at 5 cm, both proximally, and the FCR tendon was identified and a mosquito hemostat was placed beneath it. Its identity was confirmed based on traction. The FCR was then transected proximally and taken all the way up to the trapezial space and mobilized all the way to its insertion on the index metacarpal. Next, using Hohmann retractor on the ulnar side of the thumb metacarpal, a 2.5 and then 3.5 mm drill bit was used to create a dorsal distal to volar proximal hole. The FCR tendon was split and one-half of the FCR was taken into the metacarpal space. The area was thoroughly irrigated to remove any bone fragments. Fluoroscopy was brought in, which showed absence of significant bone fragments. The one half of the FCR was sutured to the periosteum of the metacarpal with a 4-0 Supramid suture. It was then taken into trapezial space, wound around itself, pulled back out and sutured with 4-0 Supramid suture. Fluoroscopy was brought in, which showed good maintenance of the trapezial space and no impingement of the metacarpal onto the scaphoid with the axial load. AP, lateral and live fluoroscopic views were all taken. Next, the other half of the FCR was sutured in the trapezial space with a 4-0 Vicryl suture. A watertight capsular closure [facility] [address] [place] [address] OPERATIVE REPORT Name: BOLIVARTONNY Room #: DEP [facility].#: [id number] Admission: 07/21/19 ������������������ Attend Phys: Kamryn Faulkner, Discharge: 07/21/19 ������������������ Date of : 45 Report #: [id number] was performed and then the skin was closed with 4-0 nylon suture. Next, attention was placed to the distal ulna. Approximately 5 cm incision was made over the DRUJ. Dissection was carried down through subcutaneous tissue with tenotomy scissors. EDM sheath was incised and the EDM tendon was retracted. The subsheath was incised creating flaps. Next, the joint was then entered, taking care to avoid damage to the TFCC. The TFCC was palpable with a [place] elevator was found to be intact. Next, an osteotome was used to remove the distal and radial side of the ulnar head. This was checked under fluoroscopy in both PA and lateral positions. This was felt to be acceptable. Next, using 3-0 Ethibond suture, the Achilles tendon graft was sutured into the space with 2-4 layers. It was felt to be very stable. The patient had full range of motion. Next, the capsule was closed taking care to avoid over tensioning it and then a 2-0 PDS was used to create stabilization of the EDM subsheath in a ____ type fashion. This was all done with the forearm in full supination. The DRUJ was assessed and was found to be stable and I was actually able to rotate fully without any crepitus. Prior to doing all this, the wound was thoroughly irrigated. The skin was closed with 4-0 nylon suture. Wound was dressed with Adaptic and sterile gauze. He was placed in a sugar-tong thumb spica splint with the forearm in supination. All fingers were pink with brisk capillary refill at the conclusion of case after deflation of tourniquet. All sponge and needle counts were correct. The patient was transferred to postoperative recovery room in stable condition. ��������������������������������������������� <ELECTRONICALLY SIGNED> ���������������������������������������� By: Kamryn Faulkner MD ��������������������������������������������� 08/10/19 1527 1102 1211 Kamryn Faulkner MD /nt
== END 2019-07-21 18:00 | disposition home or self-care (01) ==
LOC: OR 10:57 → TBA 11:01 → OR 11:15
DX: G56.01 Carpal tunnel syndrome, right upper limb (principal); M18.11 Unilateral primary osteoarthritis of first carpometacarpal joint, right hand; M19.031 Primary osteoarthritis, right wrist; E78.5 Hyperlipidemia, unspecified; G47.30 Sleep apnea, unspecified; E03.9 Hypothyroidism, unspecified; N28.9 Disorder of kidney and ureter, unspecified; Z85.46 Personal history of malignant neoplasm of prostate; Z85.828 Personal history of other malignant neoplasm of skin; Z98.890 Other specified postprocedural states; Z98.41 Cataract extraction status, right eye; Z98.42 Cataract extraction status, left eye; Z96.612 Presence of left artificial shoulder joint; Z79.82 Long term (current) use of aspirin; Z79.899 Other long term (current) drug therapy
CPT/HCPCS: 50010; 50101; 50386; 56525; 56526; 56528; 57006; 57091; 57178; 62110; 62900; 70005

== ENCOUNTER 2019-09-29 05:41 | Observation (INO) | payer OTHER, MEDICARE ==
[~2019-09-29] VITALS: Ht 177.8 cm; Wt 87.4 kg
[2019-09-29 07:00] VITALS: BP 134/82
[2019-09-29 10:45] VITALS: BP 160/35
[2019-09-29 11:43] VITALS: BP 140/75
--- NOTE | 2019-09-29 12:24 | NUR ---
PT ARRIVED ON UNIT TO ROOM 435 ALERT XS 4 NO PAIN NO RESP DISTRESS. PT WAS PUT ON 2L NC WITH O2 SAT = 94%. HAS AQUALCELL TO LEFT HIP THAT IS INTACK HAS ICE BAG ALSO ON. PT IS REGULAR DIET. HAS SLLEP APNEA MACHINE. SCDS AND JARRETT HOSE ON. ASSESSMENT COMPLETED. PT HAS DR ADAM PRIMARY DOCTOR THIS NURSE WILL CALL HIS OFFICE TO LET HIM KNOW THAT PT IS HERE. AND DAUGHTER AT BEDSIDE.
--- NOTE | 2019-09-29 12:34 | O ---
[facility] [place] [address] OPERATIVE REPORT Name: TONNY BOLIVAR Room #: 435-P [facility].#: [id number] Admission: 09/29/19 Attend Phys: Dougie Barragan MD Discharge: Date of : 45 Report #: [id number] THIS REPORT FOR: //name// CC: Dougie Villaseñor Peralta DATE OF SERVICE: 09/29/2019 SERVICE: Orthopedics. FACILITY: [facility]. SURGEON: Dougie Barragan MD INVOICE CLERK: Katia Montanez NP. PREOPERATIVE DIAGNOSES: 1. Chronic left hip pain. 2. Left hip abductor tendon tear and trochanteric bursitis. POSTOPERATIVE DIAGNOSES: 1. Chronic left hip pain. 2. Left hip abductor tendon tear and trochanteric bursitis. PROCEDURE: Left hip open abductor tendon repair with trochanteric bursectomy. COMPLICATIONS: None. DRAINS: None. SPECIMENS: None. ANESTHESIA: General. FINDINGS: High-grade tear with exposed trochanter, suture repaired with Grambling suture tape and ReelX anchor x 2. ESTIMATED BLOOD LOSS: 25 mL HISTORY OF PRESENT ILLNESS: The patient is a 74-year-old gentleman with a history of chronic lateral left hip pain and gait disruption. He had imaging consistent with an abductor tendon tear, which is what the physical examination revealed as well. He had failed conservative measures including rest, activity modifications, physical therapy, oral medications, tissue modalities. He ultimately elected to undergo definitive treatment with plans for surgical repair. Risks, benefits, alternatives, and indication of surgery discussed with [facility] [address] [place] [address] OPERATIVE REPORT Name: OSMELTONNY José Miguel Room #: 435-P [facility] M.R.#: [id number] Admission: 09/29/19 Attend Phys: Dougie Barragan MD Discharge: Date of : 45 Report #: [id number] him in detail. Risks include but not limited to pain, bleeding, infection, injury to nerves or blood vessels, persistent pain despite surgical intervention, failure of any repairs, progression of any preexisting degenerative disease as well as complications related to anesthesia such as stroke, heart attack, pulmonary complications, thromboembolic disease and . We did discuss the potential risk of fatty atrophy with the chronicity of the tendon avulsion tear. PROCEDURE IN DETAIL: After left lower extremity was correctly identified in preoperative holding area as the operative extremity, the patient was taken to the operating room where general anesthesia was induced without complication. He was padded, turned into the lateral decubitus position with the left side up the right side down, he was padded appropriately. Prophylactic antibiotics were administered at appropriate time. Left leg was prepped and draped in standard sterile fashion. Time-out procedure was performed. Incision was made over the lateral aspect of the hip. Dissection was taken down to the fascial layer, which was incised and then retracted. A Charnley retractor was then placed in the thickened inflammatory trochanteric bursa was easily visualized. This was resected with the Bovie and a large piece of trochanteric bursitis was excised. The muscle layer was preserved and the muscle appeared to be healthy and intact. The superficial layer of the abductor insertion on the trochanter appeared intact, but there was some chronic tendinopathy appearance with a pale white waxy appearance. This is typical of this particular injury. It was incised in line with the tissue and this exposed the avulsed area with the exposed trochanteric bone and tendinopathy. A rongeur was used to debride the tendinopathic tissue and degenerative tissue as well as the superficial cortical layer of the trochanter. A good decortication was achieved to bleeding bone. A total of 2 [employer] 2 mm suture tapes were used to create a locking suture technique using deep to superficial modified Loretto type suture running distally anterior up proximally and then moving posteriorly and traveling distally again and the second suture was placed more proximal to this with a U-shaped running locking suture configuration as well. The first anchor was then placed proximally in the trochanter driven down to bone and then tensioned this, provided excellent advancement of the muscle to the trochanter and good coverage of the trochanter itself. A second anchor was then placed in a similar fashion and then the sutures from the anchors and the tissue repair were used to oversew the anterior and posterior limbs of the soft tissue envelope over the trochanter in order to reinforce the repair. At this point, the repair was palpated and found to be secure and stable. The wound was copiously irrigated. The fascial layer was closed with 0 Vicryl suture in [id number] fashion. The fat layer was closed with 2-0 Vicryl and then the skin was closed with 2-0 Vicryl followed by running subcuticular 3-0 Monocryl. Dermabond and a waterproof dressing. The patient was awakened from anesthesia and taken to recovery room in stable condition. There were no complications. All counts were correct. [facility] [address] [place] [address] OPERATIVE REPORT Name: TONNY BOLIVAR Room #: 435-P [facility] Emerald Marquez#: [id number] Admission: 09/29/19 Attend Phys: Dougie Barragan MD Discharge: Date of : 45 Report #: [id number] Postoperative protocol will be approximately 30 pounds partial weightbearing to the left lower extremity with a right platform walker and abduction brace until 6 weeks postoperatively. <ELECTRONICALLY SIGNED> By: Dougie Barragan MD 09/29/19 1234 0935 1001 Dougie Barragan MD /nt
--- NOTE | 2019-09-29 15:57 | NUR ---
INITIAL ASSESSMENT: Pt evaluated for d/c planning needs. Reviewed chart and spoke with nurse and pt. Pt is alert and oriented. Pt lives in house with spouse and was independent with ADL's prior to admission to the hospital. Pt uses platform walker and has been going to outpatient OT at [place] for his wrist. Discussed going home with home health. Pt said he had home health in the past and is agreeable. Explained to pt that he cannot have both home health for mobility and outpatient OT for his arm. Pt said he is not interested in having home health then, as he has just started therapy with his wrist and the physician wants him to continue. Will f/u on to see if this is still his plan.
[2019-09-29 17:19] VITALS: BP 141/77
[2019-09-29 19:13] VITALS: BP 132/72
[2019-09-29 20:00] VITALS: BP 132/72
[2019-09-30 00:32] VITALS: BP 124/60
[2019-09-30 03:47] VITALS: BP 116/64
--- NOTE | 2019-09-30 04:43 | NUR ---
Assumed pt care at 1900. Pt is A/OX4,VSS. Denies pain on assessment,brace in place on back/left thigh. Has a edema glove/splint on right hand CMS intact. Pt is up with assist of 1 with a platform walker. Dressing to left hip C/D/I with Aquacel. Resting with no distress CPAP in place,will continue to monitor pt.
[2019-09-30 07:36] VITALS: BP 125/70
--- NOTE | 2019-09-30 11:16 | NUR ---
ASSUMED CARE OF PATIENT AT 0715, PATIENT ALERT AND ORIENTED X 4. PATIENT UP WITH 1 ASSIST TO BATHROOM, WEARS BACE WHEN UP. PATIENT DENIES PAIN THIS AM, REFUSED PAIN MEDS THIS AM PRIOR TO PHYSICAL THERAPY. 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 LEFT FOREARM IV REMOVED THIS AM. PATIENT HAS HIS OWN CPAP MACHINE AND HIS WALKER. AQUACEL DRESSING IN PLACE, C/D/I. THIS RN WILL GO OVER ALL DISCHARGE PAPERWORK, AND ALL PERSONAL BELONGINGS WILL BE SENT WITH THE PATIENT.
[2019-09-30 11:22] VITALS: BP 125/70
== END 2019-09-30 13:26 | disposition home or self-care (01) ==
LOC: OR 05:41 → TBA 05:42 → OR 10:33 → 4S 10:33 → OR 13:17 → ENTRNSPT 09-30 11:56 → EDTRNSPTSTS 09-30 12:02 → 4S 09-30 13:26
PROVIDERS: ADMIT Orthopaedic Surgery Sports Medicine
DX: S76.812A Strain of other specified muscles, fascia and tendons at thigh level, left thigh, initial encounter (principal); M70.62 Trochanteric bursitis, left hip; X58.XXXA Exposure to other specified factors, initial encounter; Y93.89 Activity, other specified; Y92.89 Other specified places as the place of occurrence of the external cause
CPT/HCPCS: 50010; 50101; 50382; 50414; 52256; 53078; 54118; 55430; 56526; 56527; 56528; 57103; 62110; 62900; 70005

== ENCOUNTER → 2019-11-26 | Outpatient (CLI) | payer OTHER, MEDICARE | LOC: MRI 07:17 | DX: R51 Headache (principal); R42 Dizziness and giddiness ==

== ENCOUNTER 2020-04-05 11:34 | Inpatient (IN) | payer OTHER, MEDICARE ==
[2020-03-30 13:14] LABS: URINE BILIRUBIN NEGATIVE (Negative); URINE BLOOD NEGATIVE (Negative); URINE CLARITY CLEAR; URINE COLOR YELLOW; URINE GLUCOSE-RANDOM* NEGATIVE (Negative); URINE KETONES NEGATIVE (Negative); URINE LEUKOCYTES-REFLEX NEGATIVE (Negative); URINE NITRITE-REFLEX NEGATIVE (Negative); URINE PROTEIN (DIPSTICK) NEGATIVE (Negative); URINE SPECIFIC GRAVITY 1.025 (1.005-1.035); URINE UROBILINOGEN 0.2 E.U./dl (0.2-1.0)
[2020-03-30 13:15] LABS: HEMATOCRIT 39.5 % (42.0-52.0); HEMOGLOBIN 12.9 gm/dL (14.0-18.0); MCH 28.6 pg (26.0-34.0); MCHC 32.8 g/dL (28.0-37.0); MCV 87.2 fL (80.0-100.0); RBC 4.53 mil/uL (4.50-6.00); RDW 15.7 % (10.5-14.5); WBC 5.9 thou/uL (4.0-11.0)
[2020-03-30 13:29] LABS: PROTIME 10.2 Seconds (9.3-11.4)
[2020-03-30 13:42] LABS: ALBUMIN 3.9 g/dL (3.4-5.0); CALCIUM 8.7 mg/dL (8.5-10.1); CREATININE 1.7 mg/dL (0.7-1.3); POTASSIUM 4.3 mmol/L (3.5-5.1); TOTAL BILIRUBIN 0.4 mg/dL (<0.1-1.0); TOTAL PROTEIN 6.7 g/dL (6.4-8.2)
--- NOTE | 2020-03-31 07:46 | EKG ---
[facility] [place] [address] ELECTROCARDIOGRAM REPORT Name: OSMELTONNY José Miguel Room #: PRE IN .R.#: [id number] Admission: Attend Phys: Severino Souza MD Discharge: Date of : 45 Report #: [id number] THIS REPORT FOR: cc: Kasi Peralta MD, Neal A. MD Lundgren,Marques Johnson MD [facility] THIS REPORT FOR: //name// [facility] Test Date: 2020-03-30 Test Time: 13:06:55 Pat Name: TONNY BOLIVAR Department: Room: Gender: Tunnel Inspector: [facility] : 1945 Requested By: Severino Souza Order Number: [id number] MD: Marques Bai Measurements Intervals Grahn Rate: 56 P: 44 CA: 148 QRS: 21 QRSD: 93 T: 36 QT: 433 QTc: 418 Interpretive Statements Sinus rhythm Abnormal R-wave progression, early transition Compared to ECG 09/11/2017 09:10:36 No significant change was found Electronically Signed On 03-31-2020 7:44:27 CDT by Marques Bai [email or web address] <ELECTRONICALLY SIGNED> By: Marques Bai MD, FACC 03/31/20 0744 1306 1306 Marques Bai MD, [facility] /EPI
[2020-04-05] VITALS (7 sets, daily range): BP systolic 136–157; BP diastolic 76–82
[~2020-04-05] VITALS: Ht 177.8 cm; Wt 90.7 kg
[2020-04-06 04:22] VITALS: BP 119/62
[2020-04-06 05:37] LABS: HEMATOCRIT 35.6 % (42.0-52.0); HEMOGLOBIN 11.8 gm/dL (14.0-18.0); MCH 28.7 pg (26.0-34.0); MCHC 33.2 g/dL (28.0-37.0); MCV 86.5 fL (80.0-100.0); RBC 4.11 mil/uL (4.50-6.00); RDW 15.3 % (10.5-14.5)
[2020-04-06 08:53] VITALS: BP 110/71
--- NOTE | 2020-04-06 11:07 | O ---
[facility] [place] [address] OPERATIVE REPORT Name: TONNY BOLIVAR Room #: 444-P ADM IN M.R.#: [id number] Admission: 04/05/20 Attend Phys: Severino Souza MD Discharge: Date of : 45 Report #: [id number] THIS REPORT FOR: cc: Kasi Peralta MD, Neal A. MD Abraham,Severino Murray MD ~ CC: Kasi Souza DATE OF SERVICE: 04/05/2020 PREOPERATIVE DIAGNOSIS: Left knee osteoarthritis. POSTOPERATIVE DIAGNOSIS: Left knee osteoarthritis. PROCEDURE: Left total knee arthroplasty using Navio robotic assistance. SURGEON: Severino Souza MD. DUST COLLECTOR TREATER: Luz Marina Patten PA-C. INDICATIONS FOR DUST COLLECTOR TREATER: Throughout the case, extensive retraction and manipulation of the knee was required. This was afforded to me by my medical assistant float. ANESTHESIA: LMA with an adductor canal block. IMPLANTS: Kitchen and Nephew size 7 Journey II BCS, cobalt chrome femur, size 7 tibia, size 10 polyethylene and size 35 patella. TOURNIQUET TIME: 56 minutes. ESTIMATED BLOOD LOSS: 25 mL. COMPLICATIONS: None. SPECIMENS: None. CONDITION UPON LEAVING THE OPERATING ROOM: Stable. INDICATIONS FOR PROCEDURE: The patient is a 74-year-old gentleman with severe left knee osteoarthritis. He had failed conservative measures for this and after discussion with him, he elected for left total knee arthroplasty. DESCRIPTION OF PROCEDURE: Risks, benefits, alternatives, complications were discussed in detail with the patient including but not limited to risk of anesthesia, risk of damage to nerves, arteries, blood vessels, risk for [facility] [address] [place] [address] OPERATIVE REPORT Name: OSMELTONNY Room #: 444-P [facility] IN .R.#: [id number] Admission: 04/05/20 Attend Phys: Severino Souza MD Discharge: Date of : 45 Report #: [id number] infection, bleeding, risk for continued knee pain, need for reoperation. Informed consent was obtained from the patient. Left knee was appropriately marked in the preoperative holding area. IV Ancef was given for preoperative antibiotics. Adductor canal block was placed. Anesthesia was brought to the operating room and placed in supine position on operating room table. LMA anesthesia was induced without complication. Tourniquet was placed on the left thigh. Left lower extremity was prepped and draped in normal sterile fashion. Timeout was performed properly identifying the patient and procedure as well as the instrumentation and implants. All in the operating room were in agreement. Left lower extremity was exsanguinated, tourniquet was inflated. Tourniquet time was 56 minutes. Standard midline approach to the knee was made with 10 blade through the skin. Dissection was taken down sharply to the fascia and deep flaps were developed medially and laterally. Fresh 10 blade was used to make a medial parapatellar arthrotomy and the knee was inspected. There was severe tricompartmental osteoarthritis. ACL and PCL were removed sharply. Reference pins were placed in the femur and the tibia. The knee was then digitally mapped using the [employer] robotic system. Intraoperative plan was made and we sized the size 7 femur and a size 7 tibia with a 10 spacer. After acceptance of the intraoperative plan, the distal femoral cut was made with a Navio bur. The distal femoral cutting block was pinned in place and chamfer cuts were made. Attention was then turned to the tibia. Remainder of the menisci removed with Bovie cautery. Tibial resection was made. After this, flexion and extension gaps were checked and found to have good balance in flexion and extension both medially and laterally. Tibia was sized, found to be a size 7. A size 7 tibial trial was placed, pinned and punched. A size 7 femoral trial was placed and the box cut was made. This was then trialed with a size 10 polyethylene. Knee was taken through range of motion, found to have good balance in flexion and extension both medially and laterally, both digitally as well as manually. After this, 9 mm was resected from the posterior surface of the patella and a size 35 patellar trial button was placed. Knee was taken through range of motion, found to have good patellar tracking. Trial components were removed. Bony ends were thoroughly irrigated with normal saline. A final size 7 tibia, size 7 Journey II BCS cobalt chrome femur and a size 35 patella were cemented in place using standard cementation techniques. While the cement cured, a periarticular ____. Toradol was placed around the knee joint capsule. After the cement cured, the tourniquet was deflated. Hemostasis was obtained with Bovie cautery. A final size 10 polyethylene was placed. A gram of vancomycin was placed deep in the joint. Fascia was closed with 0 Vicryl, skin was closed with 2-0 Vicryl, 3-0 Monocryl. Dermabond and a KEITH dressing was applied. The patient tolerated this procedure well and went to the recovery room under care of anesthesia postoperatively. <ELECTRONICALLY SIGNED> By: Severino Souza MD 04/06/20 [id number] [id number] Severino Souza MD /nt
[2020-04-06] MEDS ORDERED: ASPIR 8181 MG PO (11:24)
[2020-04-06] MEDS ORDERED: HYDROCODON-ACE1 EAC7 PO (11:24)
[2020-04-06] MEDS ORDERED: MS CONTIN15 MG PO (11:25)
[2020-04-06] MEDS ORDERED: NEURONTIN 300M300 M2 PO (11:25)
[2020-04-06 13:41] VITALS: BP 110/71
== END 2020-04-06 15:00 | disposition home or self-care (01) | DRG 470 ==
LOC: PRE 11:34 → TBA 12:57 → 4S 12:57 → PRE 19:23 → 4S 04-06 15:00
PROVIDERS: ADMIT Orthopaedic Surgery
PROC: 0SRD0J9 Replacement of Left Knee Joint with Synthetic Substitute, Cemented, Open Approach (ICD-10-PCS; principal; 2020-04-05)
DX: M17.12 Unilateral primary osteoarthritis, left knee (principal); Z98.49 Cataract extraction status, unspecified eye; Z20.828 Contact with and (suspected) exposure to other viral communicable diseases; Z79.899 Other long term (current) drug therapy
CPT/HCPCS: 10102; 50010; 50101; 50415; 50954; 51130; 51225; 51320; 52001; 52282; 53000; 53078; 53367; 54118; 56527; 56528; 57095; 57103; 57110; 57127; 57180; 62110; 62900; 64039; 70005

== ENCOUNTER → 2020-07-21 | Outpatient (CLI) | payer OTHER, MEDICARE ==
[~2020-07-21] MED LIST changes: +ASA81BEC PO; +ASPIR 8181 MG PO; +HYDROCODON-ACE1 EAC7 PO; +MS CONTIN15 MG PO; +NEURONTIN 300M300 M2 PO; +PENNSAID112 GM TOP
== END ==
LOC: LAB 09:44
PROVIDERS: ATTEND Orthopaedic Surgery
DX: Z01.812 Encounter for preprocedural laboratory examination (principal); Z20.828 Contact with and (suspected) exposure to other viral communicable diseases

== ENCOUNTER 2020-07-26 08:17 | Observation (INO) | payer OTHER, MEDICARE ==
[2020-07-17 09:18] LABS: ALBUMIN 3.8 g/dL (3.4-5.0); CALCIUM 8.7 mg/dL (8.5-10.1); CREATININE 1.6 mg/dL (0.7-1.3)
[2020-07-17 09:19] LABS: PROTIME 10.6 Seconds (9.3-11.4); URINE BILIRUBIN NEGATIVE (Negative); URINE BLOOD NEGATIVE (Negative); URINE CLARITY CLEAR; URINE COLOR YELLOW; URINE GLUCOSE-RANDOM* NEGATIVE (Negative); URINE KETONES NEGATIVE (Negative); URINE LEUKOCYTES-REFLEX NEGATIVE (Negative); URINE NITRITE-REFLEX NEGATIVE (Negative); URINE PROTEIN (DIPSTICK) NEGATIVE (Negative); URINE SPECIFIC GRAVITY 1.025 (1.005-1.035); URINE UROBILINOGEN 0.2 E.U./dl (0.2-1.0)
[2020-07-17 13:52] LABS: HEMOGLOBIN 12.9 gm/dL (14.0-18.0); MCH 27.8 pg (26.0-34.0); MCV 84.3 fL (80.0-100.0); RBC 4.62 mil/uL (4.50-6.00); RDW 17.7 % (10.5-14.5); WBC 4.4 thou/uL (4.0-11.0)
[~2020-07-26] VITALS: Ht 177.8 cm; Wt 93.0 kg
--- NOTE | ~2020-07-26 | O ---
[facility] [place] [address] OPERATIVE REPORT Name: TONNY BOLIVAR Room #: 436-P [facility] IN M.R.#: [id number] Admission: 07/26/20 Attend Phys: Severino Souza MD Discharge: Date of : 45 Report #: [id number] THIS REPORT FOR: cc: Kasi Peralta MD,Kasi Souza,Severino Murray MD ~ CC: Kasi Souza DATE OF SERVICE: 07/26/2020 PREOPERATIVE DIAGNOSIS: Right knee osteoarthritis. POSTOPERATIVE DIAGNOSIS: Right knee osteoarthritis. PROCEDURE: Right total knee arthroplasty using Navio robotic assistance. SURGEON: Severino Souza MD. FITTER TACKER: Luz Marina Patten PA-C. INDICATIONS FOR FITTER TACKER: Throughout the case, extensive retraction and manipulation of the knee was required. This was afforded to me by my promotions assistant sales marketing. ANESTHESIA: LMA with an adductor canal block. IMPLANTS: Kitchen and Nephew size 7 Journey II BCS cobalt chrome femur, size 6 tibia, size 10 polyethylene and size 35 patella. TOURNIQUET TIME: 57 minutes. ESTIMATED BLOOD LOSS: 25 mL. COMPLICATIONS: None. SPECIMENS: None. CONDITION UPON LEAVING THE OPERATING ROOM: Stable. INDICATIONS FOR PROCEDURE: The patient is a 74-year-old gentleman with severe right knee osteoarthritis. He had failed conservative measures for this and after discussion with him, he elected for right total knee arthroplasty. DESCRIPTION OF PROCEDURE: Risks, benefits, alternatives, complications were discussed in detail with the patient including but not limited to risk of anesthesia; risk of damage to nerves, arteries, blood vessels; risk for [facility] [address] [place] [address] OPERATIVE REPORT Name: TONNY BOLIVAR José Miguel Room #: 436-P [facility] IN [facility].#: [id number] Admission: 07/26/20 Attend Phys: Severino Souza MD Discharge: Date of : 45 Report #: [id number] infection, bleeding; risk for continued knee pain, need for reoperation. Informed consent was obtained from the patient. Right knee was appropriately marked in the preoperative holding area. IV Ancef was given for preoperative antibiotics. Adductor canal block was placed by anesthesia. He was brought to the operating room and placed in supine position on operating room table. LMA anesthesia was induced without complication. Tourniquet was placed on the right thigh. Right lower extremity was prepped and draped in normal sterile fashion. Timeout was performed properly identifying the patient and procedure as well as the instrumentation and implants. All in the operating room were in agreement. Right lower extremity was exsanguinated, tourniquet was placed. Tourniquet time was 57 minutes. Standard midline approach to the knee was made with 10 blade through the skin. Dissection was taken down sharply to the fascia and deep flaps were developed medially and laterally. Fresh 10 blade was used to make a medial parapatellar arthrotomy and the knee was inspected. There was severe tricompartment osteoarthritis. ACL and PCL were removed sharply. Reference pins were placed in the femur and the tibia. The knee was then digitally mapped using [employer] robotic system. Intraoperative plan was made and we sized the size 7 femur with a size 6 tibia and a 10 spacer. After acceptance of the intraoperative plan, the distal femoral cut was made with a Navio bur. Distal femoral cutting block was pinned in place and the chamfer cuts were made. Attention was turned to the tibia. Remainder of the menisci removed with Bovie cautery. Tibial resection guide was pinned in place using the Navio for placement and tibial resection was made. After this, flexion and extension gaps were checked and found to have good balance in flexion and extension both medially and laterally. Tibia was sized, found to be a size 6. A size 6 tibial trial was placed, pinned and punched. A size 7 femoral trial was placed and the box cut was made. This was then trialed with a size 10 polyethylene and size 10 polyethylene demonstrated 1 to 1-1/2 millimeter of laxity medially and laterally throughout range of motion of the knee. A 9 mm was resected from the posterior surface of the patella and a size 35 patellar trial button was placed. Knee was taken through range of motion, found to be stable, found to have good patellar tracking. Trial components were removed. Bony ends were thoroughly irrigated with normal saline. Final size 6 tibia, size 7 Journey II BCS cobalt chrome femur and a size 35 patella were cemented in place using standard cementation techniques. While the cement cured, a periarticular injection consisting of morphine, ropivacaine, epinephrine and Toradol was placed around the knee joint capsule. After the cement cured, the tourniquet was deflated. Hemostasis was obtained with Bovie cautery. Final size 10 polyethylene was placed. A gram of vancomycin was placed deep in the joint. Fascia was closed with 0 Vicryl, skin was closed with 2-0 Vicryl, 3-0 Monocryl. Dermabond and a KEITH dressing was applied. The patient tolerated this procedure well and went to recovery room under care of anesthesia postoperatively. By: [id number] Severino Souza MD /nt
[2020-07-26 11:51] VITALS: BP 134/80
--- NOTE | 2020-07-26 17:42 | NUR ---
PATIENT ADMITTED FROM OR WITH RIGHT KNEE REPLACEMENT, KEITH DRESSING IN PLACE, KNEE HIGH JARRETT SRIVASTAVA, SCD'S, POLAR PACK. PATIENT C/O SOME PAIN, 5/10, REFUSED PAIN MEDS AT THIS TIME. REGULAR DIET ORDERED, NO NAUSEA AT THIS TIME. PATIENT HAS LEFT HAND IV IN PLACE. ADMISSION COMPLETED AND RRPORT GIVEN TO ADAM/RN.
[2020-07-26 18:57] VITALS: BP 145/80
--- NOTE | 2020-07-27 03:29 | NUR ---
ASSUMED PT CARE AT 1908. PT IS A&OX4. IV IS IN LEFT HAND, D5 1/2 NS RUNNING 100 MLS/HR. PT TAKES MEDICATION WHOLE. PT IS ON ROOM AIR. PT DENIES PAIN. PT HAS KEITH DRESSING, POLAR PACK, JARRETT HOSE IN PLACE. PT HAS URINAL AT BEDSIDE. PT IS SLEEPING IN HIS ROOM. WILL CONTINUE TO MONITOR.
[2020-07-27 04:02] VITALS: BP 121/67
[2020-07-27 06:11] LABS: HEMATOCRIT 34.1 % (42.0-52.0); HEMOGLOBIN 11.3 gm/dL (14.0-18.0); MCH 28.1 pg (26.0-34.0); MCHC 33.3 g/dL (28.0-37.0); MCV 84.5 fL (80.0-100.0); RBC 4.03 mil/uL (4.50-6.00); WBC 10.1 thou/uL (4.0-11.0)
--- NOTE | 2020-07-27 08:58 | NUR ---
ASSESSMENT: CM REVIEWED CHART AND SPOKE WITH PATIENT. PT IS HERE S/P R TKA. PT REPORTS THAT HE LIVES IN A HOUSE WITH HIS . PT REPORTS THAT HE HAS ABOUT 2 STEPS TO ENTER AND 12 STEPS WITH HANDRAILS TO HIS BEDROOM. PT REPORTS HE HAS A WALKER AT HOME. PT REPORTS HE IS INDEPENDENT WITH ADLS BUT DOES HAVE A GRAB BAR AND SHOWER CHAIR. PT REPORTS THAT HE HAS OUTPATIENT THERAPY ARRANGED AT [facility] FOR THIS FRIDAY. PT IS TO WORK WITH PT/OT. CM WILL CONTINUE TO FOLLOW TO ASSIST NEEDED.
[2020-07-27 11:28] VITALS: BP 121/67
--- NOTE | 2020-07-27 16:40 | NUR ---
DC ORDERS RECIEVED. IV REMOVED FROM L HAND. DC INSTRUCTIONS AND F/U APPOINTMENT REVIEWED WITH PT, ALREADY HAS SCRIPTS FILLED AT HOME. PT ESCORTED TO MAIN ENTRANCE.
== END 2020-07-27 12:34 | disposition home or self-care (01) ==
LOC: PRE 08:17 → 4S 10:27 → TBA 10:27 → 4S 10:27 → PRE 11:08 → 4S 16:41
PROVIDERS: ADMIT Orthopaedic Surgery; ATTEND Orthopaedic Surgery
DX: M17.11 Unilateral primary osteoarthritis, right knee (principal); M17.12 Unilateral primary osteoarthritis, left knee; M18.9 Osteoarthritis of first carpometacarpal joint, unspecified; M76.892 Other specified enthesopathies of left lower limb, excluding foot; Z96.652 Presence of left artificial knee joint
CPT/HCPCS: 27447; S2900; 10102; 50010; 50101; 50415; 50954; 51130; 51225; 51320; 52001; 52282; 53000; 53078; 54118; 56527; 56528; 57095; 57103; 57110; 57127; 57180; 58239; 62110; 62900; 64039; 70005

== ENCOUNTER → 2020-08-29 | Outpatient (CLI) | payer OTHER, MEDICARE ==
[~2020-08-29] VITALS: Ht 177.8 cm; Wt 94.0 kg
[2020-08-29 07:54] VITALS: BP 139/67
--- NOTE | 2020-08-29 07:59 | NUR ---
Pain Clinic Assessment: 1. History of Osteoarthritis: Not Applicable History of Rheumatoid Arthritis: Not Applicable 2. Height: 5 ft. 10 in. 177.8 cm. Weight: 207.2 lb. oz. 93.985 kg. Patient's BMI: 29.7 3. Vital Signs: BP: 139/67 Pulse: 59 Resp: 18 Temp: 02 Sat: 99 ECG Mon: 4. Pain Intensity: 4 5. Fall Risk: Dizziness: N Needs help standing or walking: N Fallen in the last 3 months: N Fall risk comments: 6. Patient on Blood Thinner: None 7. History of Hypertension: N 8. Opioid Therapy greater than 6 weeks: N Opiate Contract Signed: 9. Risk Assessment Tool Provided: LOW RISK 0 10. Functional Assessment Tool: 11. Recreational Drug Use: Never Drug Type: Tobacco Use: Never Smoker Tobacco Type: Amount or Packs/day: How Many Years: Alcohol Use: No Frequency: Quant:
--- NOTE | 2020-08-29 12:49 | HPC ---
[facility] [place] [address] PAIN MANAGEMENT CONSULTATION Name: OSMELTONNY José Miguel Room #: [facility] Jimmy#: [id number] Admission: 08/29/20 Attend Phys: Cabrera Majano DO Discharge: Date of : 45 Report #: [id number] CC: Cabrera Peralta DATE OF SERVICE: 08/29/2020 CHIEF COMPLAINT: Bilateral lower extremity pain with paresthesias. HISTORY OF PRESENT ILLNESS: As you know, the patient is a pleasant 75-year-old male returning in followup visit with recurrence of bilateral lower extremity paresthesias. The patient, as you are aware, has undergone fusion with Dr. Brent Grullon in 03/2019 with resolution of his symptoms from a severe near critical lumbar spinal stenosis. He was left with multiple level spinal stenosis of varying levels, the most significant noted on the MRI at L1-L2 followed by L3-L4. He has also undergone left hip surgery to address muscle avulsion and reattachment. This was done just after his lumbar fusion. He has also had right hand surgery performed in 08/2019 and bilateral total knee arthroplasty with the most recent being done 5 weeks ago. Despite all these interventional treatments, the patient continues to experience bilateral lower extremity pain with paresthesias consistent with central canal lumbar stenosis. The patient has yet to see his primary care physician nor has he returned to see his neurosurgeon in regards to this issue. He returns today to discuss options for treatment. There are no new imaging studies available. Most recent imaging is prior to surgery performed in 2016. He reports today pain level about 4/10. He denies injury or trauma. He is unaware of what level of the fusion was done with Dr. Grullon and I do not have corroborating information to confirm levels of surgery. He returns to discuss options for treatment. ALLERGIES: FENTANYL. CURRENT MEDICATIONS: Levothyroxine 75 mcg daily, simvastatin 20 mg per day, Tylenol Extra Strength p.r.n., gabapentin 300 mg p.o. at bedtime, aspirin 81 mg per day, Pennsaid applied topically twice a day to a local area. SOCIAL HISTORY: The patient reports no IV or illicit drug use. Denies any chronic alcohol use. He is a reformed smoker. 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 He returns today in followup visit unaccompanied. IMAGING: No new imaging available. PQRS: The patient has known arthritic changes of the lumbar spine, bilateral knees, status post total knee arthroplasty. No rheumatoid arthritis. He is placing pain intensity today at 4/10. He is not a fall risk nor has the fall in last 3 months. He is not on blood thinners, nor is he treated for hypertension. He is not on chronic opioids, has a low opioid addiction potential. Pain impact 27/70, [id number] interference of daily activities secondary to pain. PHYSICAL EXAMINATION: VITAL SIGNS: Blood pressure 139/67, pulse 59, respiratory rate 18 and unlabored. The patient is 99% on room air. Height 5 feet 10 inches tall, weight 207.2 pounds, BMI calculated 29.7. GENERAL: Well-developed, well-nourished, well-hydrated 75-year-old male appearing stated age, pain is rated today 4/10. HEENT: Normocephalic, atraumatic. Pupils equal, round and reactive. Speech fluent. EXTREMITIES: Show no clubbing, no cyanosis. No notable edema. Well-healed surgical scars over the bilateral knees noted today. MUSCULOSKELETAL: Lower extremity strength equal and symmetrical 5/5, intact to light touch from L1 through S2 dermatomes. Seated straight leg raising negative. Supine straight leg raising positive. Hernandez's test is negative. Modified Gaenslen's positive for axial low back pain. Ankle clonus negative. Babinski is negative. Muscle bulk and tone appears equal and symmetrical in comparing lower extremities, muscle bulk and tone is equal and symmetrical. ASSESSMENT: 1. Lumbar radiculopathy. 2. Spinal stenosis of lumbar spine. 3. Displacement of lumbar intervertebral disk with radiculopathy. 4. Lumbosacral spondylosis with radiculopathy. 5. Lumbar degeneration. 6. Chronic intractable pain. PLAN: 1. The patient returns today in followup visit with bilateral lower extremity paresthesias consistent with central canal stenosis. The patient underwent a fusion of the lumbar spine with Dr. Randolph Grullon in 03/2019. The patient is unaware the level of the fusion, but given the findings from his imaging study of 2015, it would be assumed that his stenosis at the L4-L5 level would have been the area of most concern as the findings showed a 4-5 mm AP canal at that level, which was the most significant compressive force in the lumbar spine at that time. We have discussed with the patient our concerns about his bilateral lower extremity symptoms as it relates to spinal stenosis at the levels above and below the fusion. I do not have imaging available to advise the patient whether or not options for surgery may be necessary, though we recommend a conservative approach initially. If this is then unsuccessful, move forward with more imaging and possible surgical consultations. The patient is agreeable. We discussed the following treatment options today. We discussed physical therapy, stretching exercises, core strengthening techniques as a treatment course. We discussed medication management, adjusting neuropathic pain medications as he is on an extremely low dose of gabapentin at present. We discussed epidural injections under fluoroscopic guidance as an option for treatment as well as spinal cord stimulator therapy and ultimately surgical decompression. After reviewing the risks and benefits of all proposed treatment options, the patient chose to adjust medications initially. 2. The patient was provided prescription of gabapentin 300 mg dose. He is currently taking 300 mg p.o. at bedtime, we recommend he increase every 3 days, increasing as follows in hopes of gaining analgesic benefit and minimizing potential side effects of sleepiness, disorientation, confusion and mental slowing. The following titration was given to the patient today. The patient will increase from 1 tablet p.o. at bedtime to 2 tabs p.o. at bedtime for the next 3 nights, no improvement in symptoms, no side effects, then increase to 1 tab in the morning, 2 tablets at night, continuing for 3 days. If again no side effects and no improvement in symptoms, continue the titration every 3 days to reach a level of 900 mg t.i.d. The patient was given a titration schedule to follow. Prescriptions for gabapentin were sent to his local pharmacy. He was advised anytime during the titration if he notes improvement in symptoms, he is to stabilize at that dose, no further escalation. If he notes side effects of sleepiness, disorientation, confusion, mental slowing, he is to reduce the dose prior and contact our clinic. 3. We will plan to see the patient back in follow-up visit in approximately one month. This will give the patient a chance to titrate the medication as directed. If he is having any side effects or concerns, he will call our clinic. We may see him back earlier. We will keep you apprised of that appointment. 4. We wish to thank the referring physician for the opportunity to see this patient in consultation. We will keep you apprised of his response to treatment as we address his recurrent central canal stenosis and lumbar radiculopathy. Again, we wish to thank you for the opportunity to see the patient in consultation. <ELECTRONICALLY SIGNED> By: Cabrera Majano DO 08/29/20 1249 [id number] Cabrera Majano DO /nt
== END ==
LOC: PAIN 06:48
PROVIDERS: ATTEND Anesthesiology Pain Medicine
DX: M51.16 Intervertebral disc disorders with radiculopathy, lumbar region (principal); M48.061 Spinal stenosis, lumbar region without neurogenic claudication; M47.27 Other spondylosis with radiculopathy, lumbosacral region; M79.604 Pain in right leg; M79.605 Pain in left leg; R20.2 Paresthesia of skin; M51.36 Other intervertebral disc degeneration, lumbar region; G89.29 Other chronic pain; Z88.8 Allergy status to other drugs, medicaments and biological substances; Z79.899 Other long term (current) drug therapy

== ENCOUNTER → 2020-10-18 | Outpatient (CLI) | payer OTHER, MEDICARE ==
[~2020-10-18] VITALS: Ht 177.8 cm; Wt 96.0 kg
[2020-10-18 13:28] VITALS: BP 125/80
--- NOTE | 2020-10-18 13:48 | NUR ---
Pain Clinic Assessment: 1. History of Osteoarthritis: DENIES History of Rheumatoid Arthritis: DENIES 2. Height: 5 ft. 10 in. 177.8 cm. Weight: 211.6 lb. oz. 95.981 kg. Patient's BMI: 30.4 3. Vital Signs: BP: 125/80 Pulse: 66 Resp: 16 Temp: 02 Sat: 100 ECG Mon: 4. Pain Intensity: 5 5. Fall Risk: Dizziness: N Needs help standing or walking: N Fallen in the last 3 months: N Fall risk comments: 6. Patient on Blood Thinner: None 7. History of Hypertension: N 8. Opioid Therapy greater than 6 weeks: N Opiate Contract Signed: 9. Risk Assessment Tool Provided: LOW RISK 0 10. Functional Assessment Tool: 11. Recreational Drug Use: Never Drug Type: Tobacco Use: Never Smoker Tobacco Type: Amount or Packs/day: How Many Years: Alcohol Use: No Frequency: Quant:
--- NOTE | 2020-10-24 07:58 | HPC ---
[address] [address] PAIN MANAGEMENT CONSULTATION Name: TONNY BOLIVAR José Miguel [facility] #: [id number] Admission: 10/18/20 Attend Phys: Cabrera Majano DO Discharge: Date of : 45 Report #: [id number] THIS REPORT FOR: cc: Kasi Peralta MD, Neal A. MD Johnson, James E. DO ~ DATE OF SERVICE: 10/18/2020 REFERRING PHYSICIAN: Dr. Brent Grullon CHIEF COMPLAINT: Bilateral lower extremity pain. HISTORY OF PRESENT ILLNESS: As you know, the patient is a very pleasant, 75-year-old male who has been referred back to our clinic by his neurosurgeon, Dr. Brent Grullon, for an epidural injection under fluoroscopic guidance. The patient, after surgery, continued to experience bilateral lower extremity pain with paresthesias. He underwent surgery in March of 2019 with resolution of his severe, near critical spinal stenosis but he was left with bilateral lower extremity symptoms, that has slowly progressed. He has returned today in followup visit to undergo the first in a series of lumbar epidural injections requested by his neurosurgeon. He is being evaluated for possible surgical decompression of the level above his recent surgery but they are hopeful to avoid this with epidural injections. The patient denies new injury, trauma or any changes in medical history since our visit of 08/29/2020 where we trialled conservative medication management. Unfortunately, he could not tolerate the gabapentin. Though he was seeing some benefit with it, he said the side effects were too profound and he discontinued the medication due mainly to somnolence. He returns today for epidural injection under fluoroscopic guidance. ALLERGIES: FENTANYL. CURRENT MEDICATIONS: Levothyroxine, simvastatin, Tylenol Extra Strength, gabapentin, aspirin, Pennsaid. SOCIAL HISTORY: The patient reports no tobacco use. He is a former smoker. He denies IV or illicit drug use. Denies any chronic alcohol use. He is unaccompanied today. IMAGING: No new imaging available. PQRS: The patient has known arthritic changes of the lumbar spine, bilateral knees. No rheumatoid arthritis. He is placing pain intensity today at 5/10. He is not a fall risk. Has not had a fall in the last 3 months. He is not on blood thinners nor is he treated for hypertension. He is not on chronic opioids. Has a low opiate addiction potential. Pain impact score is 27/70. [address] [address] PAIN MANAGEMENT CONSULTATION Name: TONNY BOLIVAR José Miguel [facility] [id number] Admission: 10/18/20 Attend Phys: Cabrera Majano DO Discharge: Date of : 45 Report #: [id number] Moderate interference of daily activities secondary to pain. PHYSICAL EXAMINATION: VITAL SIGNS: Blood pressure 125/80, pulse 66, respiratory rate 16 and unlabored. The patient is 100% on room air. Height 5 feet 10 inches tall, weight 211.6 pounds, BMI calculated at 30.4. GENERAL: Well-developed, well-nourished, well-hydrated 75-year-old male, appearing his stated age. Pain is rated around 5/10. HEENT: Normocephalic, atraumatic. EXTREMITIES: Show no clubbing, no cyanosis. No appreciable edema. MUSCULOSKELETAL: Lower extremity strength equal and symmetrical 5/5, intact to light touch from L1 through S2 dermatomes. Seated straight leg raising negative. Supine straight leg raising positive. Hernandez's test is negative. ASSESSMENT: 1. Symptomatic lumbar radiculopathy. 2. Spinal stenosis of lumbar spine. 3. Displacement of lumbar intervertebral disk with radiculopathy. 4. Lumbosacral spondylosis with radiculopathy. 5. Lumbar degeneration. 6. Chronic intractable pain. PLAN: 1. The patient has returned today in followup visit indicating he could not tolerate the escalating doses of gabapentin due to somnolence. He has subsequently decreased the use of the medication and the somnolence symptoms abated. He is stabilized on a dose of gabapentin that is providing minimal benefit but also no side effects. He is going to continue the dose at that level. He returns today to undergo lumbar epidural injection. The patient was advised of the risks and the benefits of a lumbar epidural injection. These risks include, but are not necessarily limited to; bleeding, bruising, infection, worsening of pain, no relief of pain, temporary or permanent muscle weakness, temporary or permanent nerve damage, possible paralysis and . The patient states understood and wished to proceed. 2. No medication changes made at today's visit. The patient will continue current medical therapy as prior prescribed. 3. We will see the patient back in followup visit for the next in the series of lumbar epidural injections in about 30 days. We are hopeful the patient will see good and prolonged benefit with today's procedure and he will be able to delay the next in the series of injections. PROCEDURE NOTE DESCRIPTION OF PROCEDURE: Lumbar epidural steroid injection under fluoroscopic guidance. [address] [address] PAIN MANAGEMENT CONSULTATION Name: TONNY BOLIVAR Room #: REG Mari Marquez#: [id number] Admission: 10/18/20 Attend Phys: Cabrera Majano DO Discharge: Date of : 45 Report #: [id number] After obtaining written consent, the patient was taken back to fluoroscopy suite, placed in prone position with pillow under abdomen to decrease lumbar lordosis. Skin overlying the lumbosacral area then prepped and draped in an aseptic fashion. Lumbar intervertebral spaces were identified and the area just above the fusion was marked with a sterile marker. A 27-gauge, 1-1/4 inch needle was then used to anesthetize skin and subcutaneous tissue with 2 mL of 1% lidocaine. A 20-gauge 3-1/2 inch Tuohy needle advanced under fluoroscopic guidance towards the epidural space using a midline approach. Epidural space identified using loss of resistance to air technique. After negative aspiration for heme or cerebrospinal fluid, 1 mL of Omnipaque injected. Lumbar epidurogram confirmed using both AP and lateral fluoroscopy. After negative aspiration for heme or cerebrospinal fluid, 5 mL of a solution containing 2 mL 40 mg per mL, 80 mg total of triamcinolone along with 3 mL of lidocaine 1% injected slowly. Needle retracted fpc, flushed with 1 mL of 1% lidocaine and then removed. Sterile bandage placed over injection site. No new motor deficits present in the lower extremities following the procedure. The patient tolerated procedure well, carefully escorted to recovery room in a stable condition. No apparent complications. After meeting discharge criteria, the patient discharged home. <ELECTRONICALLY SIGNED> By: Cabrera Majano DO 10/24/20 [id number] Cabrera Majano DO /balwinder
== END | disposition home or self-care (01) ==
LOC: PAIN 06:48
PROVIDERS: ATTEND Anesthesiology Pain Medicine
DX: M51.16 Intervertebral disc disorders with radiculopathy, lumbar region (principal); M47.27 Other spondylosis with radiculopathy, lumbosacral region; M48.061 Spinal stenosis, lumbar region without neurogenic claudication; G89.29 Other chronic pain; Z98.890 Other specified postprocedural states; Z79.899 Other long term (current) drug therapy; Z87.891 Personal history of nicotine dependence; Z88.8 Allergy status to other drugs, medicaments and biological substances

== ENCOUNTER → 2021-03-27 | Outpatient (CLI) | payer OTHER, MEDICARE | LOC: SJCVCIMAG 07:52 | PROVIDERS: ATTEND Internal Medicine Cardiovascular Disease | DX: I07.1 Rheumatic tricuspid insufficiency (principal); I77.89 Other specified disorders of arteries and arterioles; R06.00 Dyspnea, unspecified; R00.1 Bradycardia, unspecified; R07.89 Other chest pain; I25.10 Atherosclerotic heart disease of native coronary artery without angina pectoris; Z79.899 Other long term (current) drug therapy ==

== ENCOUNTER → 2021-05-08 | Outpatient (CLI) | payer OTHER, MEDICARE ==
[~2021-05-08] VITALS: Ht 177.8 cm; Wt 99.8 kg
[~2021-05-08] MED LIST changes: +ALPHA LIPOIC AC50 M1 PO; +BENICAR20 MG PO; +DEEP BLUE RELI TOP; +IRON325 M1 PO; +LEVO-T100 MCG PO; +LYRICA 50 MG50 MG PO; +VOLTAREN ARTHRI20 GM TOP
--- NOTE | ~2021-05-08 | HPC ---
[facility] [place] [address] PAIN MANAGEMENT CONSULTATION Name: TONNY BOLIVAR José Miguel Room #: REG [facility] Ramone.#: [id number] Admission: 05/08/21 Attend Phys: Cabrera Majano DO Discharge: Date of : 45 Report #: [id number] THIS REPORT FOR: cc: Kasi Peralta MD, Neal A. MD Johnson, James E. DO ~ DOC #: [id number] cc: Kasi Peralta MD, MD Cabrera Jackman DO DATE OF SERVICE: 05/08/2021 CHIEF COMPLAINT: Bilateral lower extremity peripheral neuropathy. HISTORY OF PRESENT ILLNESS: As you know, patient is a very pleasant 75-year-old male, referred back to our service with diagnosis of bilateral peripheral neuropathy of the lower extremities. Patient has undergone surgery to address lumbar radiculopathy with improvement in overall pain. Unfortunately, patient continues to experience bilateral lower extremity symptoms for which he describes as numbness, tingling and burning. Apparently, he has undergone EMG of the lower extremities, which shows peripheral neuropathic symptoms, unrelated to the lumbar spine. He was sent to Neurology, who trialed the patient on low-dose Lyrica therapy. He is now taking 50 mg b.i.d. without side effects, but without benefit. He has been referred to our clinic to discuss treatment options for peripheral neuropathy. He has failed gabapentin as it caused somnolence. He is having no side effects to the Lyrica. He reports today pain level of about a 6/10. 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 He describes the pain more as a burning, aching and weakness-like sensation in the lower extremities. He has been referred back to our clinic to discuss treatment options for peripheral neuropathy. ALLERGIES: No known drug allergies. CURRENT MEDICATIONS: Lyrica 50 mg b.i.d., ferrous sulfate 325 mg per day, Voltaren arthritis 20 g topical 4 times a day, alpha-lipoic acid 300 mg b.i.d., simvastatin 20 mg per day, olmesartan 20 mg per day, levothyroxine 100 mcg per day, aspirin 81 mg per day, acetaminophen 325 mg p.r.n. SOCIAL HISTORY: No tobacco use. He is a former smoker. Denies IV or illicit drug use. Denies any chronic alcohol use. He is retired, retiring about a month ago. Unaccompanied today. IMAGING: No new imaging available. PQRS: Patient has known arthritic changes of lumbar spine, bilateral knees. No rheumatoid arthritis. He is not a fall risk, has not had a fall in the last [address] [address] PAIN MANAGEMENT CONSULTATION Name: OSMELTONNY José Miguel Room #: REG [facility] Marquez#: [id number] Admission: 05/08/21 Attend Phys: Cabrera Majano DO Discharge: Date of : 45 Report #: [id number] months. He is not on blood thinners. He is treated for hypertension. He is not on any opioids, has a low opioid addiction potential based on our assessment tool. Pain impact is 30/70, moderate interference of daily activities secondary to pain. PHYSICAL EXAMINATION: VITAL SIGNS: Blood pressure 137/60, pulse 55, respiratory rate 18 and unlabored. Patient 99% on room air. Height 5 feet 10 inches tall, weight 220 pounds, BMI calculated at 31.6. GENERAL: Well-developed, well-nourished, well-hydrated 75-year-old male, appears stated age. Pain is rated today up to 6/10. HEENT: He is normocephalic, atraumatic. Pupils equal, round and responsive. He is wearing a mask in compliance with COVID-19 regulations. EXTREMITIES: Show no clubbing, no cyanosis, no appreciable edema. MUSCULOSKELETAL: Lower extremity strength equal and symmetrical, 5/5. He is intact to light touch from L1 through S2 dermatomes, though there is a mild change in peripheral tactile sensation along the L5 and S1 dermatomes bilaterally, though this is mild according to the patient. Seated straight leg raising negative. Supine straight leg raising negative. ZAYDA test is negative. Modified Gaenslen's positive for axial low back pain. It does appear he has sensation intact to pinprick sensation. ASSESSMENT: 1. Symptomatic lumbar radiculopathy. 2. Displacement of lumbar intervertebral disk with radiculopathy. 3. Lumbosacral spondylosis with radiculopathy. 4. Lumbar degeneration. 5. Peripheral neuropathy. 6. Chronic intractable pain. PLAN: 1. Patient has returned today in followup visit, describing bilateral lower extremity symptoms. He has been diagnosed with peripheral neuropathy, unrelated to lumbar radiculopathy. He has undergone treatment for his lumbar radicular symptoms with Dr. Grullon and apparently EMG was obtained after the patient continued to experience bilateral lower extremity symptoms. He was diagnosed with peripheral neuropathy, sent to Neurology, who has provided low-dose medication management. Apparently, the patient failed his gabapentin due to side effects of sleepiness, disorientation, confusion at extremely low dose. He has been started on Lyrica at 50 mg b.i.d. He is noticing no side effects and no improvement in symptoms. Due to lack of improvement with these very conservative treatment options, patient was referred back to our clinic to discuss options of treatment. 2. Patient and I did discuss the Lyrica therapy at extremely low dose. This medication is safe from [address] up to 600 mg per day. We recommend an escalation of the medication every 7 days, looking for either side effects or [facility] [address] [place] [address] PAIN MANAGEMENT CONSULTATION Name: TONNY BOLIVAR Room #: REG Mari Marquez#: [id number] Admission: 05/08/21 Attend Phys: Cabrera Majano DO Discharge: Date of : 45 Report #: [id number] improvement in symptoms. Patient is agreeable with that plan. We recommend moving from 50 mg in the morning and 50 mg at night to 50 mg in the morning, 100 mg at night for 7 nights. No improvement in symptoms, no side effects, then increase to 100 mg b.i.d. for 7 days. No improvement in symptoms then increase to 100 mg morning and 150 mg at night for 7 nights. No improvement in symptoms, no side effects, then increase to 150 mg b.i.d., that would be our goal. Patient was advised to escalate the dose as directed. Once he reaches his good efficacious level, he will contact our clinic and advise us of that number. This could be provided through his PCP or he can follow up with our clinic to receive that medication. 3. Patient and I had a very long discussion about other treatment options for peripheral neuropathy. He would be an excellent candidate for a spinal cord stimulator. Patient was given information about spinal cord stimulating therapies. He is very interested in this device. We discussed that the patient would have to seek psychiatric evaluation as part of the workup for a spinal cord stimulator. He was given the information of the psychiatrists in the area that provide this testing. He will begin that process immediately. We will be submitting for the patient to undergo a trial with a spinal cord stimulator for his peripheral neuropathic symptoms involving the bilateral lower extremities. Once we have the psychiatric evaluation in hand and he is shown to be a candidate, we will then complete the process of authorizations to undergo the trial implantation. If this is then successful, we will ____ permanent implant. Patient is very agreeable with plan. He was given information both in digital and written form today to review. I will do this at his earliest convenience. He was also given the names and the phone numbers of the physicians that provide the psychiatric evaluations. 4. We plan to see the patient back in followup visit once he has completed the psychiatric evaluation. If he is deemed an excellent candidate from a psychiatric standpoint showing no psychopathology, we will then begin the process of scheduling for a trial implantation. He will also keep us apprised of his adjustments in medications and whether or not he sees benefit. DO TAMMY Gold/ALLAN/EFRA By: [id number] Cabrera Majano DO /nt
[2021-05-08 12:41] VITALS: BP 137/60
--- NOTE | 2021-05-08 12:54 | NUR ---
Pain Clinic Assessment: 1. History of Osteoarthritis: DENIES History of Rheumatoid Arthritis: DENIES 2. Height: 5 ft. 10 in. 177.8 cm. Weight: 220.0 lb. oz. 99.792 kg. Patient's BMI: 31.6 3. Vital Signs: BP: 137/60 Pulse: 55 Resp: 18 Temp: 02 Sat: 99 ECG Mon: 4. Pain Intensity: 6 5. Fall Risk: Dizziness: N Needs help standing or walking: N Fallen in the last 3 months: N Fall risk comments: 6. Patient on Blood Thinner: None 7. History of Hypertension: Y 8. Opioid Therapy greater than 6 weeks: N Opiate Contract Signed: 9. Risk Assessment Tool Provided: LOW RISK 0 10. Functional Assessment Tool: 11. Recreational Drug Use: Never Drug Type: Tobacco Use: Never Smoker Tobacco Type: Amount or Packs/day: How Many Years: Alcohol Use: No Frequency: Quant:
== END ==
LOC: PAIN 08:45
PROVIDERS: ATTEND Anesthesiology Pain Medicine
DX: M51.16 Intervertebral disc disorders with radiculopathy, lumbar region (principal); M47.26 Other spondylosis with radiculopathy, lumbar region; G89.4 Chronic pain syndrome; Z79.891 Long term (current) use of opiate analgesic; Z79.899 Other long term (current) drug therapy

== ENCOUNTER → 2021-07-04 | Outpatient (CLI) | payer OTHER, MEDICARE ==
[~2021-07-04] VITALS: Ht 177.8 cm; Wt 98.7 kg
--- NOTE | ~2021-07-04 | HPC ---
[facility] [address] [place] [address] PAIN MANAGEMENT CONSULTATION Name: TONNY BOLIVAR Room #: REG [facility]CTOR HU[facility] Jimmy#: [id number] Admission: 07/04/21 Attend Phys: Cabrera Majano DO Discharge: Date of : 45 Report #: [id number] THIS REPORT FOR: cc: Kasi Peralta MD, Neal A. MD Johnson, James E. DO ~ cc: Kasi Peralta MD DATE OF SERVICE: 07/04/2021 CHIEF COMPLAINT: Low back pain, bilateral lower extremity pain with peripheral neuropathy. HISTORY OF PRESENT ILLNESS: As you know, the patient is a very pleasant 75-year-old male who returns today in followup visit having noted greater than 60% improvement in overall pain with a spinal cord stimulator trial with Nevro dorsal column stimulator. He is very excited about the device, so returned today in followup visit to begin the process of scheduling a permanent implantation. The patient did very well, noticing improvement in his functional capabilities as well as his ongoing pain. He states he was able to go to the dog park and walk his dog without difficulty, which he has not been able to do in years. He was able to keep up with his on their daily walk, which again has not been something he has been able to do. He has also been able to participate in home projects and activities such as a remodeling without pain interference during the trial. He is very pleased with response to the trial, wishing today to begin the process of moving forward with permanent implant. ALLERGIES: No known drug allergies. CURRENT MEDICATIONS: Lyrica, ferrous sulfate, Voltaren, alpha lipoic acid, simvastatin, olmesartan, levothyroxine, aspirin and acetaminophen. SOCIAL HISTORY: The patient is a former smoker. Denies IV or illicit drug use. Denies any chronic alcohol use. He retired recently. He is unaccompanied today. IMAGING: No new imaging available. PQRS: The patient has known arthritic changes of lumbar spine, bilateral knees. No rheumatoid arthritis. He is not a fall risk, does not have fall in last 3 months. He is placing current pain score at no greater than 4/10. He is treated for hypertension, but not on any blood thinners. He is not on any chronic opioids, has a low opioid addiction potential. Pain impact is with the device on - without the device on . PHYSICAL EXAMINATION: VITAL SIGNS: Blood pressure 144/69, pulse 64, respiratory rate [address] [facility] [address] [place] [address] PAIN MANAGEMENT CONSULTATION Name: BOLIVARTONNY José Miguel Room #: [facility]#: [id number] Admission: 07/04/21 Attend Phys: Cabrera Majano DO Discharge: Date of : 45 Report #: [id number] unlabored. The patient 97% on room air. Height 5 feet 10 inches tall, weight 217.6 pounds, BMI calculated 31.2. GENERAL: Well-developed, well-nourished, well-hydrated 75-year-old male appearing stated age, pain is rated today at no greater than 4/10, this was with the device off, 1/10 with the device on. HEENT: Normocephalic, atraumatic. He is wearing a mask in compliance with COVID-19 regulations. EXTREMITIES: Show no clubbing, no cyanosis, no edema. MUSCULOSKELETAL: Lower extremity strength is symmetrical 5/5 intact to light touch from L1 through S2 dermatomes. Seated straight leg raising negative. Supine straight leg raising negative. ASSESSMENT: 1. Symptomatic lumbar radiculopathy. 2. Displacement of lumbar intervertebral disk with radiculopathy. 3. Lumbosacral spondylosis with radiculopathy. 4. Lumbar degeneration. 5. Peripheral neuropathy. 6. Chronic intractable pain. PLAN: 1. The patient is very pleased with response of a cord stimulator trial done with the Nevro device. He does wish to move forward with permanent implant. We will be sending him to see Dr. Pimentel at [facility] for permanent implant of a paddle lead. We did have some difficulty with implanting one of the percutaneous leads as the patient continues to experience paresthesias. Despite multiple attempts at redirecting the lead and even repositioning the entry site of the lead, the patient was unable to tolerate. He does have fairly significant osteoarthritic changes in the thoracolumbar area. Also, has a rotoscoliosis of the thoracolumbar junction, which may be contributing to some minimization of the epidural space in the area thus making it difficult to provide two percutaneous leads. We recommend a paddle lead for this patient given his level of activity and the difficulty with the implantation of the second percutaneous lead. We will be sending him to see Dr. Pimentel for implantation. 2. No medication changes made at today's visit. The patient will continue current medical therapy as prior prescribed. 3. We will see the patient back in followup visit on an as needed basis. He can contact our clinic with any questions or concerns. He will be following up with consultation with Dr. Pimentel at his earliest convenience. PROCEDURE NOTE DESCRIPTION OF PROCEDURE: Explantation of spinal cord stimulator trial implantation. [address] [address] PAIN MANAGEMENT CONSULTATION Name: TONNY BOLIVAR Room #: REG [facility]#: [id number] Admission: 07/04/21 Attend Phys: Cabrera Majano DO Discharge: Date of : 45 Report #: [id number] The patient was placed in a seated position. We removed all Steri-Strips and Op-Site bandaging. There was one spinal cord stimulating lead in place. There was no erythema or drainage at the site of insertion. The lead was removed without complication. The lead had its 8 electrodes and tip intact. The patient tolerated the explantation without paresthesia or pain. Sterile bandage was placed over injection site. He was discharged home without any concerns. By: 0900 [id number] Cabrera Majano DO /nt
[2021-07-04 08:59] VITALS: BP 144/69
--- NOTE | 2021-07-04 09:09 | NUR ---
Pain Clinic Assessment: 1. History of Osteoarthritis: DENIES History of Rheumatoid Arthritis: DENIES 2. Height: 5 ft. 10 in. 177.8 cm. Weight: 217.6 lb. oz. 98.703 kg. Patient's BMI: 31.2 3. Vital Signs: BP: 144/69 Pulse: 64 Resp: 16 Temp: 02 Sat: 97 ECG Mon: 4. Pain Intensity: 4 5. Fall Risk: Dizziness: N Needs help standing or walking: N Fallen in the last 3 months: N Fall risk comments: 6. Patient on Blood Thinner: None 7. History of Hypertension: Y 8. Opioid Therapy greater than 6 weeks: N Opiate Contract Signed: 9. Risk Assessment Tool Provided: LOW RISK 0 10. Functional Assessment Tool: 11. Recreational Drug Use: Never Drug Type: Tobacco Use: Never Smoker Tobacco Type: Amount or Packs/day: How Many Years: Alcohol Use: No Frequency: Quant:
== END ==
LOC: PAIN 06:54
PROVIDERS: ATTEND Anesthesiology Pain Medicine
DX: G89.29 Other chronic pain (principal); G62.9 Polyneuropathy, unspecified; M51.16 Intervertebral disc disorders with radiculopathy, lumbar region; M47.27 Other spondylosis with radiculopathy, lumbosacral region; Z68.31 Body mass index [BMI] 31.0-31.9, adult; Z79.891 Long term (current) use of opiate analgesic; Z79.899 Other long term (current) drug therapy; Z87.891 Personal history of nicotine dependence